=== PATIENT | female | born 1960 ===

== ENCOUNTER 2018-03-03 09:25 | Inpatient (IN) | payer OTHER ==
[2018-03-03 10:11] LABS: BASO # 0.1 K/uL (0.0-0.2); BASO % 1.1 % (0.0-2.0); EOS # 0.4 K/uL (0.0-0.7); LYMPH # 2.3 K/uL (1.0-4.3); LYMPH % 38.6 % (20.0-40.0); MEAN CELL VOLUME 82.3 fL (81.0-99.0); MEAN CORPUSCULAR HEMOGLOBIN 27.5 pg (27.0-31.0); MEAN CORPUSCULAR HGB CONC 33.4 g/dL (33.0-37.0); MEAN PLATELET VOLUME 8.1 fL (7.2-11.7); MONO # 0.4 K/uL (0.0-0.8); MONO % 7.6 % (0.0-10.0); NEUT # 2.7 K/uL (1.8-7.0); NEUT % 45.7 % (50.0-75.0); NRBC % 0.1 % (0.0-2.0); RBC 2.46 Mil/uL (3.80-5.20); WHITE BLOOD COUNT 5.9 K/uL (4.8-10.8)
[2018-03-03 10:22] LABS: ALB/GLOB RATIO 1.5 (1.0-2.1); ALBUMIN 3.5 g/dL (3.5-5.0); ALT/SGPT 54 U/L (9-52); AST/SGOT 36 U/L (14-36); BLOOD UREA NITROGEN 22 mg/dL (7-17); CALCIUM 8.4 mg/dl (8.6-10.4); GFR NON-AFRICAN AMERICAN > 60
[2018-03-03 10:23] LABS: HEMOGLOBIN 6.8 g/dL (11.0-16.0)
[2018-03-03 10:35] LABS: B-TYPE NATRIURETIC PEPTIDE 81.6 pg/mL (0-900); CK-MB 1.35 ng/mL (0.0-3.38)
--- NOTE | 2018-03-03 11:13 | C.PDOC ---
History Of Present Illness 58 y/o female presents to ED with c/o two episodes of palpitations, dizziness and weakness. Pt notes she had an episode yesterday and one this morning last about 15 min and self resolving. (+) dark stool for 2 weeks. (+) NSAID use. C ontrary to triage, pt had no syncope. Patient denies vaginal bleeding, abdominal pain, loc, chest pain, sob, headache, visual changes or any other complaints at this time. Time Seen by Provider: 03/03/18 09:32 Chief Complaint (Nursing): Syncope History Per: Patient History/Exam Limitations: no limitations Onset/Duration Of Symptoms: Days Current Symptoms Are (Timing): Still Present Past Medical History Reviewed: Historical Data, Nursing Documentation, Vital Signs Vital Signs: Last Vital Signs Temp 98.6 F 03/04/18 15:00 Pulse 83 03/04/18 15:30 Resp 19 03/04/18 15:30 BP 105/57 L 03/04/18 15:30 Pulse Ox 100 03/04/18 15:30 - Medical History PMH: Hypercholesterolemia Surgical History: No Surg Hx Family History: States: No Known Family Hx - Social History Hx Alcohol Use: No Hx Substance Use: No - Immunization History Hx Tetanus Toxoid Vaccination: No Hx Influenza Vaccination: No Hx Pneumococcal Vaccination: No Review Of Systems Except As Marked, All Systems Reviewed And Found Negative. Constitutional: Negative for: Fever, Chills Cardiovascular: Positive for: Palpitations. Negative for: Chest Pain Gastrointestinal: Negative for: Nausea, Vomiting Neurological: Positive for: Weakness, Dizziness. Negative for: Headache Physical Exam - Physical Exam Appears: Non-toxic, No Acute Distress Skin: Warm, Dry, Pale, No Rash Head: Atraumatic, Normacephalic Eye(s): bilateral: PERRL, EOMI, Conjunctiva Pale, Other (No nystagmus) Nose: Normal Oral Mucosa: Moist Neck: Normal ROM, Supple Chest: Symmetrical Cardiovascular: Rhythm Regular Respiratory: Normal Breath Sounds, No Rales, No Rhonchi, No Wheezing Gastrointestinal/Abdominal: Soft, No Tenderness, No Guarding, No Rebound Rectal: Rectal Tone, Melena Back: No CVA Tenderness Extremity: Normal ROM Neurological/Psych: Oriented x3, Normal Speech, Normal Cognition ED Course And Treatment - Laboratory Results Result Diagrams: 03/04/18 06:14 03/04/18 06:14 ECG: Interpreted By Me, Viewed By Me ECG Rhythm: Sinus Rhythm Rate From EC (BPM) O2 Sat by Pulse Oximetry: 100 (RA) Pulse Ox Interpretation: Normal Progress Note: Case discussed with Dr. Helms, agreed upon admission. Disposition - Disposition Disposition: HOSPITALIZED Disposition Time: 14:00 Condition: STABLE - Clinical Impression Clinical Impression: Symptomatic anemia, GI bleed - PA / ERGONOMICS CONSULTANT / Resident Statement MD/DO has reviewed & agrees with the documentation as recorded. - Scribe Statement The provider has reviewed the documentation as recorded by the Mimiibiain Hernandez All medical record entries made by the Johanna were at my direction and personally dictated by me. I have reviewed the chart and agree that the record accurately reflects my personal performance of the history, physical exam, medical decision making, and the department course for this patient. I have also personally directed, reviewed, and agree with the discharge instructions and disposition.
[2018-03-03 11:22] LABS: URINE BILIRUBIN NEGATIVE (NEGATIVE); URINE BLOOD NEGATIVE (NEGATIVE); URINE CLARITY Clear (Clear); URINE COLOR Straw (YELLOW); URINE GLUCOSE (UA) NORMAL (Normal); URINE LEUKOCYTE ESTERASE TRACE Leu/uL (Negative); URINE PROTEIN NEGATIVE (NEGATIVE); URINE UROBILINOGEN NORMAL mg/dL (0.2-1.0)
[2018-03-03 11:35] LABS: BARBITURATES, UR NEGATIVE (NEGATIVE); BENZODIAZEPINES, UR NEGATIVE (NEGATIVE); OPIATES, UR NEGATIVE (NEGATIVE); PHENCYCLIDINE, UR NEGATIVE (NEGATIVE)
[2018-03-03 12:39] LABS: INR 1.1; PROTHROMBIN TIME 12.3 SECONDS (9.7-12.2)
[2018-03-03 20:51] LABS: HEMOGLOBIN 8.2 g/dL (11.0-16.0)
[2018-03-04 06:38] LABS: HEMOGLOBIN 7.8 g/dL (11.0-16.0); MEAN CELL VOLUME 81.9 fL (81.0-99.0); MEAN CORPUSCULAR HEMOGLOBIN 27.7 pg (27.0-31.0); MEAN CORPUSCULAR HGB CONC 33.9 g/dL (33.0-37.0); MEAN PLATELET VOLUME 7.9 fL (7.2-11.7); RBC 2.81 Mil/uL (3.80-5.20); RED CELL DISTRIBUTION WIDTH 17.2 % (11.5-14.5); WHITE BLOOD COUNT 6.1 K/uL (4.8-10.8)
[2018-03-04 06:39] LABS: INR 1.1; PROTHROMBIN TIME 11.7 SECONDS (9.7-12.2)
[2018-03-04 07:44] LABS: BLOOD UREA NITROGEN 17 mg/dL (7-17); CALCIUM 8.4 mg/dl (8.6-10.4); GFR NON-AFRICAN AMERICAN > 60
--- NOTE | 2018-03-04 07:47 | CP.PCM.CON ---
History of Present Illness - History of Present Illness History of Present Illness: CC: Melena/anemia HPI: GI consult requested on this 58 year old woman with Hgb 6, melena. Pt transfused yesterday with PRBCs. Denies abdominal pain or prior history of PUD. Has been taking Celebrex and Cyclobenzaprine for lower back pain. PCP- Dr Saini. Denies ASA use. No BM x past 2 days. Was tachycardic on presentation. Review of Systems - Constitutional Constitutional: absent: Anorexia - Cardiovascular Cardiovascular: absent: Chest Pain - Respiratory Respiratory: Dyspnea - Gastrointestinal Gastrointestinal: Melena. absent: Abdominal Pain - Musculoskeletal Musculoskeletal: Back Pain - Integumentary Integumentary: absent: Jaundice - Neurological Neurological: Weakness - Psychiatric Psychiatric: absent: Confusion Past Patient History - Past Medical History & Family History Past Medical History?: No - Past Social History Smoking Status: Never Smoked Alcohol: None - CARDIAC Hx Hypercholesterolemia: No - PULMONARY Hx Respiratory Disorders: No - NEUROLOGICAL Hx Neurological Disorder: No - HEENT Hx HEENT Problems: No - RENAL Hx Chronic Kidney Disease: No - ENDOCRINE/METABOLIC Hx Endocrine Disorders: No - HEMATOLOGICAL/ONCOLOGICAL Hx Blood Disorders: No - INTEGUMENTARY Hx Dermatological Problems: No - MUSCULOSKELETAL/RHEUMATOLOGICAL Hx Musculoskeletal Disorders: No Hx Falls: No - GASTROINTESTINAL Other/Comment: c/o black stool - GENITOURINARY/GYNECOLOGICAL Hx Genitourinary Disorders: No - PSYCHIATRIC Hx Psychophysiologic Disorder: No Hx Substance Use: No - SURGICAL HISTORY Hx Surgeries: Yes Other/Comment: minor - ANESTHESIA Hx Anesthesia: Yes Hx Anesthesia Reactions: No Hx Malignant Hyperthermia: No Has any member of the family had a problem w/ anesthesia?: No Meds Allergies/Adverse Reactions: Allergies Allergy/AdvReac Type Severity Reaction Status Date / Time No Known Allergies Allergy Verified 03/03/18 09:47 - Medications Medications: Current Medications Pantoprazole Sodium (Protonix Inj) 40 mg IVP Q12 ANNE Last Admin: 03/03/18 22:01 Dose: 40 mg Pneumococcal Polyvalent Vaccine (Pneumovax 23 Vaccine) 0.5 ml IM .ONCE ONE Stop: 03/05/18 10:01 Physical Exam - Constitutional Appears: Well, No Acute Distress - Head Exam Head Exam: NORMOCEPHALIC - Eye Exam Eye Exam: absent: Scleral icterus - ENT Exam ENT Exam: Normal Exam - Respiratory Exam Respiratory Exam: Clear to Auscultation Bilateral - Cardiovascular Exam Cardiovascular Exam: REGULAR RHYTHM - GI/Abdominal Exam GI & Abdominal Exam: Soft. absent: Guarding, Mass, Tenderness Results - Vital Signs Recent Vital Signs: Last Vital Signs Temp 98.6 F 03/04/18 00:00 Pulse 88 03/04/18 00:00 Resp 20 03/04/18 00:00 BP 104/61 03/04/18 00:00 Pulse Ox 99 03/04/18 00:00 - Labs Result Diagrams: 03/04/18 06:14 03/04/18 06:14 Labs: Laboratory Results - last 24 hr 03/03/18 03/03/18 03/03/18 10:07 10:07 11:10 WBC 5.9 RBC 2.46 L Hgb 6.8 L Hct 20.2 L MCV 82.3 MCH 27.5 MCHC 33.4 RDW 19.0 H Plt Count 289 MPV 8.1 Neut % (Auto) 45.7 L Lymph % (Auto) 38.6 [place] % (Auto) 7.6 Eos % (Auto) 7.0 H Baso % (Auto) 1.1 Neut # (Auto) 2.7 Lymph # (Auto) 2.3 [place] # (Auto) 0.4 Eos # (Auto) 0.4 Baso # (Auto) 0.1 PT INR APTT Sodium 138 Potassium 4.2 Chloride 102 Carbon Dioxide 27 Anion Gap 13 BUN 22 H Creatinine 0.7 Est GFR ( Amer) > 60 Est GFR (Non-Af Amer) > 60 Random Glucose 115 H Calcium 8.4 L Total Bilirubin 0.5 AST 36 ALT 54 H Alkaline Phosphatase 73 Total Creatine Kinase 99 CK-MB (Mass) 1.35 Troponin I < 0.0120 NT-Pro-B Natriuret Pep 81.6 Total Protein 5.8 L Albumin 3.5 Globulin 2.3 Albumin/Globulin Ratio 1.5 TSH 3rd Generation 2.73 Urine Color Straw Urine Clarity Clear Urine pH 7.0 Ur Specific [place] 1.005 Urine Protein Negative Urine Glucose (UA) Normal Urine Ketones Negative Urine Blood Negative Urine Nitrate Negative Urine Bilirubin Negative Urine Urobilinogen Normal Ur Leukocyte Esterase Trace Urine WBC (Auto) 1 Stool Occult Blood Urine Opiates Screen Urine Methadone Screen Ur Barbiturates Screen Ur Phencyclidine Scrn Ur Amphetamines Screen U Benzodiazepines Scrn U Oth Cocaine Metabols U Cannabinoids Screen Blood Type Antibody Screen 03/03/18 03/03/18 03/03/18 11:10 12:03 12:19 WBC RBC Hgb Hct MCV MCH MCHC RDW Plt Count MPV Neut % (Auto) Lymph % (Auto) [place] % (Auto) Eos % (Auto) Baso % (Auto) Neut # (Auto) Lymph # (Auto) [place] # (Auto) Eos # (Auto) Baso # (Auto) PT INR APTT Sodium Potassium Chloride Carbon Dioxide Anion Gap BUN Creatinine Est GFR ( Amer) Est GFR (Non-Af Amer) Random Glucose Calcium Total Bilirubin AST ALT Alkaline Phosphatase Total Creatine Kinase CK-MB (Mass) Troponin I NT-Pro-B Natriuret Pep Total Protein Albumin Globulin Albumin/Globulin Ratio TSH 3rd Generation Urine Color Urine Clarity Urine pH Ur Specific [place] Urine Protein Urine Glucose (UA) Urine Ketones Urine Blood Urine Nitrate Urine Bilirubin Urine Urobilinogen Ur Leukocyte Esterase Urine WBC (Auto) Stool Occult Blood Positive H Urine Opiates Screen Negative Urine Methadone Screen Negative Ur Barbiturates Screen Negative Ur Phencyclidine Scrn Negative Ur Amphetamines Screen Negative U Benzodiazepines Scrn Negative U Oth Cocaine Metabols Negative U Cannabinoids Screen Negative Blood Type O POSITIVE Antibody Screen Negative 03/03/18 03/03/18 03/04/18 12:24 20:48 06:14 WBC 6.1 RBC 2.81 L Hgb 8.2 L 7.8 L Hct 23.6 L 23.0 L MCV 81.9 MCH 27.7 MCHC 33.9 RDW 17.2 H Plt Count 262 MPV 7.9 Neut % (Auto) Lymph % (Auto) [place] % (Auto) Eos % (Auto) Baso % (Auto) Neut # (Auto) Lymph # (Auto) [place] # (Auto) Eos # (Auto) Baso # (Auto) PT 12.3 H INR 1.1 APTT 26 Sodium Potassium Chloride Carbon Dioxide Anion Gap BUN Creatinine Est GFR ( Amer) Est GFR (Non-Af Amer) Random Glucose Calcium Total Bilirubin AST ALT Alkaline Phosphatase Total Creatine Kinase CK-MB (Mass) Troponin I NT-Pro-B Natriuret Pep Total Protein Albumin Globulin Albumin/Globulin Ratio TSH 3rd Generation Urine Color Urine Clarity Urine pH Ur Specific [place] Urine Protein Urine Glucose (UA) Urine Ketones Urine Blood Urine Nitrate Urine Bilirubin Urine Urobilinogen Ur Leukocyte Esterase Urine WBC (Auto) Stool Occult Blood Urine Opiates Screen Urine Methadone Screen Ur Barbiturates Screen Ur Phencyclidine Scrn Ur Amphetamines Screen U Benzodiazepines Scrn U Oth Cocaine Metabols U Cannabinoids Screen Blood Type Antibody Screen 03/04/18 03/04/18 06:14 06:14 WBC RBC Hgb Hct MCV MCH MCHC RDW Plt Count MPV Neut % (Auto) Lymph % (Auto) [place] % (Auto) Eos % (Auto) Baso % (Auto) Neut # (Auto) Lymph # (Auto) [place] # (Auto) Eos # (Auto) Baso # (Auto) PT 11.7 INR 1.1 APTT Sodium 140 Potassium 4.2 Chloride 106 Carbon Dioxide 27 Anion Gap 12 BUN 17 Creatinine 0.8 Est GFR ( Amer) > 60 Est GFR (Non-Af Amer) > 60 Random Glucose 103 Calcium 8.4 L Total Bilirubin AST ALT Alkaline Phosphatase Total Creatine Kinase CK-MB (Mass) Troponin I NT-Pro-B Natriuret Pep Total Protein Albumin Globulin Albumin/Globulin Ratio TSH 3rd Generation Urine Color Urine Clarity Urine pH Ur Specific [place] Urine Protein Urine Glucose (UA) Urine Ketones Urine Blood Urine Nitrate Urine Bilirubin Urine Urobilinogen Ur Leukocyte Esterase Urine WBC (Auto) Stool Occult Blood Urine Opiates Screen Urine Methadone Screen Ur Barbiturates Screen Ur Phencyclidine Scrn Ur Amphetamines Screen U Benzodiazepines Scrn U Oth Cocaine Metabols U Cannabinoids Screen Blood Type Antibody Screen Assessment & Plan (1) Anemia due to blood loss Assessment and Plan: Anemia, melena, BROWN-2 inhibitor use. Suspect UpperGI ttract as source of acute blood loss. Clinically stable at present Will plan on EGD today. PPI. NPO Discussed with patient and her spouse, and RN Status: Acute
--- NOTE | 2018-03-04 11:57 | CARD ---
APPROVED REPORT Date of service: 03/03/2018 EKG Measurement Heart [id number] <Conclusion> Normal sinus rhythm Normal ECG
[2018-03-04] MEDS ORDERED: Propofol 10 mg/ml Inj (20 ML) ONE ×2 (14:18→14:51)
[2018-03-04] MEDS ORDERED: Lidocaine Hydrochloride 5 ML INJ ONE (14:20)
[2018-03-04] MEDS ORDERED: Lactated Ringer's 1,000 ML IV ONE (14:35)
--- NOTE | 2018-03-04 15:07 | CP.PCM.PN ---
Subjective - Date & Time of Evaluation Date of Evaluation: 03/04/18 Time of Evaluation: 15:06 - Subjective Subjective: EGD: Large benign appearing gastric mass with ulcer on surface, treated with Gold probe and epinephrine with good hemostasis Rec: PPI, monitor Hgb, await pathology. Will need elective surgical resection Objective - Vital Signs/Intake and Output Vital Signs (last 24 hours): Temp Pulse Resp BP Pulse Ox 98.5 F 82 20 105/69 99 03/04/18 07:54 03/04/18 07:54 03/04/18 07:54 03/04/18 07:54 03/04/18 07:54 - Medications Medications: Current Medications Pantoprazole Sodium (Protonix Inj) 40 mg IVP Q12 ANNE Last Admin: 03/04/18 10:17 Dose: 40 mg Pneumococcal Polyvalent Vaccine (Pneumovax 23 Vaccine) 0.5 ml IM .ONCE ONE Stop: 03/05/18 10:01 - Labs Labs: 03/04/18 06:14 03/04/18 06:14 PT 11.7 SECONDS (9.7-12.2) 03/04/18 06:14 INR 1.1 03/04/18 06:14 APTT 26 SECONDS (21-34) 03/03/18 12:24 Assessment and Plan (1) Anemia due to blood loss Status: Acute
--- NOTE | 2018-03-04 17:12 | CP.PCM.HP ---
Present on Admission - Present on Admission Any Indicators Present on Admission: No Past Patient History - Past Medical History & Family History Past Medical History?: No - Past Social History Smoking Status: Never Smoked Alcohol: None - CARDIAC Hx Hypercholesterolemia: No - PULMONARY Hx Respiratory Disorders: No - NEUROLOGICAL Hx Neurological Disorder: No - HEENT Hx HEENT Problems: No - RENAL Hx Chronic Kidney Disease: No - ENDOCRINE/METABOLIC Hx Endocrine Disorders: No - HEMATOLOGICAL/ONCOLOGICAL Hx Blood Disorders: No - INTEGUMENTARY Hx Dermatological Problems: No - MUSCULOSKELETAL/RHEUMATOLOGICAL Hx Musculoskeletal Disorders: No Hx Falls: No - GASTROINTESTINAL Other/Comment: c/o black stool - GENITOURINARY/GYNECOLOGICAL Hx Genitourinary Disorders: No - PSYCHIATRIC Hx Psychophysiologic Disorder: No Hx Substance Use: No - SURGICAL HISTORY Hx Surgeries: Yes Other/Comment: minor - ANESTHESIA Hx Anesthesia: Yes Hx Anesthesia Reactions: No Hx Malignant Hyperthermia: No Has any member of the family had a problem w/ anesthesia?: No Meds Allergies/Adverse Reactions: Allergies Allergy/AdvReac Type Severity Reaction Status Date / Time No Known Allergies Allergy Verified 03/03/18 09:47 Results - Vital Signs Recent Vital Signs: Last Vital Signs Temp 98.6 F 03/04/18 15:00 Pulse 83 03/04/18 15:30 Resp 19 03/04/18 15:30 BP 105/57 L 03/04/18 15:30 Pulse Ox 100 03/04/18 15:30 - Labs Result Diagrams: 03/10/18 06:27 03/09/18 07:43 Labs: Laboratory Results - last 24 hr 03/03/18 03/03/18 03/04/18 12:19 20:48 06:14 WBC 6.1 RBC 2.81 L Hgb 8.2 L 7.8 L Hct 23.6 L 23.0 L MCV 81.9 MCH 27.7 MCHC 33.9 RDW 17.2 H Plt Count 262 MPV 7.9 PT INR Sodium Potassium Chloride Carbon Dioxide Anion Gap BUN Creatinine Est GFR ( Amer) Est GFR (Non-Af Amer) Random Glucose Calcium Blood Type O POSITIVE Antibody Screen Negative 03/04/18 03/04/18 06:14 06:14 WBC RBC Hgb Hct MCV MCH MCHC RDW Plt Count MPV PT 11.7 INR 1.1 Sodium 140 Potassium 4.2 Chloride 106 Carbon Dioxide 27 Anion Gap 12 BUN 17 Creatinine 0.8 Est GFR ( Amer) > 60 Est GFR (Non-Af Amer) > 60 Random Glucose 103 Calcium 8.4 L Blood Type Antibody Screen
--- NOTE | 2018-03-05 04:08 | HP ---
CHIEF COMPLAINT: Weakness, yellow pale discoloration. HISTORY OF PRESENT ILLNESS: This is a 58 years old female with significant past medical history. She came because she had two episodes of palpitation, weakness, dizziness lasting 15 minutes on the day prior to the day of admission along with generalized weakness and tiredness, anorexia, malaise and fatigue. She denied any abdominal pain, nausea, vomiting. She has some dark colored stool. She denies any vaginal bleeding. She denies any history of taking any pain killers over the counter. She has generalized weakness and tiredness. She denies abdominal pain. No fevers. No chills. PAST MEDICAL HISTORY: Nothing significant. SOCIAL HISTORY: Nonsmoker, non-ETOH user. CURRENT MEDICATIONS: None. ALLERGIES: UNKNOWN ALLERGIES. PHYSICAL EXAMINATION: GENERAL: A middle aged female in no distress, weak. VITAL SIGNS: BP 105/57, pulse 83, respiratory rate 20, temperature 98.6. SKIN: No rash. Pale. No purpura, no petechiae. HEENT: Atraumatic and normocephalic. Positive pallor. Negative jaundice. Extraocular movements are intact. NECK: Supple. No JVD. No lymph nodes. No thyromegaly. No carotid bruits. CHEST: Chest wall bilateral symmetrical expansion. LUNGS: Clear. No rales. No rhonchi. ABDOMEN: Soft and nontender. Bowel sounds are positive. RECTAL: Positive for occult blood. EXTREMITIES: No clubbing, cyanosis or edema. PELVIC: Negative. LEAF CONDITIONER: Normal. IMPRESSION: 1. Anemia, gastrointestinal bleed, rule out peptic ulcer disease versus gastritis. 2. Dehydration. PLAN: Admit. Detailed orders written. Seen and examined. Amandeep Helms MD
[2018-03-05 06:51] LABS: HEMOGLOBIN 7.6 g/dL (11.0-16.0); MEAN CELL VOLUME 81.5 fL (81.0-99.0); MEAN CORPUSCULAR HEMOGLOBIN 27.6 pg (27.0-31.0); MEAN CORPUSCULAR HGB CONC 33.8 g/dL (33.0-37.0); MEAN PLATELET VOLUME 7.6 fL (7.2-11.7); RBC 2.75 Mil/uL (3.80-5.20); RED CELL DISTRIBUTION WIDTH 17.1 % (11.5-14.5); WHITE BLOOD COUNT 5.1 K/uL (4.8-10.8)
[2018-03-05] MEDS ORDERED: Pneumococcal 23-Valent Vaccine IM ONE (10:00)
--- NOTE | 2018-03-05 13:29 | CP.PCM.CON ---
History of Present Illness - History of Present Illness History of Present Illness: General surgery consult note for Dr. Mercer-Maggie Powell, PGY-2 Pt S & E at bedside with Dr Mercer at 1315 58F w/no sig PMH consulted for gastric mass. Pt reports melena x >1 week, constipation. Denies ab pain, F & C, diarrha, N & V, SOB, CP, back pain, changes in urinary habits, other complaints. Pt evaluated by GI with findings of gastric mass in gastric body on EGD. PMH: Denies PSH: lipoma excision over left arm x 3 All: NKDA SH: Denies ETOH, tobacco or illicit drug use Review of Systems - Review of Systems All systems: reviewed and no additional remarkable complaints except - Constitutional Constitutional: absent: Chills, Fever, Headache - EENT Ears: absent: Dizziness Nose/Mouth/Throat: absent: Sore Throat - Cardiovascular Cardiovascular: absent: Chest Pain - Gastrointestinal Gastrointestinal: Constipation, Melena. absent: Abdominal Pain, Diarrhea, Nausea, Vomiting - Musculoskeletal Musculoskeletal: absent: Back Pain - Integumentary Integumentary: absent: Rash Past Patient History - Past Medical History & Family History Past Medical History?: No - Past Social History Smoking Status: Never Smoked Alcohol: None - CARDIAC Hx Hypercholesterolemia: Yes - PULMONARY Hx Respiratory Disorders: No - NEUROLOGICAL Hx Neurological Disorder: No - HEENT Hx HEENT Problems: No - RENAL Hx Chronic Kidney Disease: No - ENDOCRINE/METABOLIC Hx Endocrine Disorders: No - HEMATOLOGICAL/ONCOLOGICAL Hx Blood Disorders: No - INTEGUMENTARY Hx Dermatological Problems: No - MUSCULOSKELETAL/RHEUMATOLOGICAL Hx Musculoskeletal Disorders: No Hx Falls: No - GASTROINTESTINAL Other/Comment: c/o black stool - GENITOURINARY/GYNECOLOGICAL Hx Genitourinary Disorders: No - PSYCHIATRIC Hx Substance Use: No - SURGICAL HISTORY Hx Surgeries: Yes Other/Comment: minor - ANESTHESIA Hx Anesthesia: Yes Hx Anesthesia Reactions: No Hx Malignant Hyperthermia: No Has any member of the family had a problem w/ anesthesia?: No Meds Allergies/Adverse Reactions: Allergies Allergy/AdvReac Type Severity Reaction Status Date / Time No Known Allergies Allergy Verified 03/03/18 09:47 - Medications Medications: Current Medications Pantoprazole Sodium (Protonix Inj) 40 mg IVP Q12 ANNE Last Admin: 03/05/18 10:09 Dose: 40 mg Physical Exam - Constitutional Appears: Non-toxic, No Acute Distress - Head Exam Head Exam: ATRAUMATIC, NORMAL INSPECTION, NORMOCEPHALIC - Eye Exam Eye Exam: EOMI, Normal appearance - ENT Exam ENT Exam: Mucous Membranes Moist, Normal Exam - Neck Exam Neck exam: Positive for: Full Rom, Normal Inspection - Respiratory Exam Respiratory Exam: Clear to Auscultation Bilateral, NORMAL BREATHING PATTERN - Cardiovascular Exam Cardiovascular Exam: REGULAR RHYTHM, +S1, +S2 - GI/Abdominal Exam GI & Abdominal Exam: Normal Bowel Sounds, Soft. absent: Distended, Firm, Guarding, Tenderness - Extremities Exam Extremities exam: Positive for: normal inspection. Negative for: pedal edema - Back Exam Back exam: NORMAL INSPECTION - Neurological Exam Neurological exam: Alert, Oriented x3 - Psychiatric Exam Psychiatric exam: Normal Affect, Normal Mood - Skin Skin Exam: Dry, Intact, Normal Color, Warm Results - Vital Signs Recent Vital Signs: Last Vital Signs Temp 98 F 03/05/18 08:02 Pulse 94 H 03/05/18 08:02 Resp 20 03/05/18 08:02 BP 92/60 L 03/05/18 08:02 Pulse Ox 98 03/05/18 08:02 - Labs Result Diagrams: 03/05/18 06:35 03/04/18 06:14 Labs: Laboratory Results - last 24 hr 03/03/18 03/05/18 12:19 06:35 WBC 5.1 RBC 2.75 L Hgb 7.6 L Hct 22.4 L MCV 81.5 MCH 27.6 MCHC 33.8 RDW 17.1 H Plt Count 251 MPV 7.6 Blood Type O POSITIVE Antibody Screen Negative Assessment & Plan - Assessment and Plan (Free Text) Assessment: 58F w/gastric mass Plan: Possible OR tomorrow CXR FU AM labs NPO pMN Transfuse pRBCs PRN DW Dr. Sylvie Powell, PGY-2 - Date & Time Date: 03/05/18 Time: 13:40
--- NOTE | 2018-03-05 15:19 | CP.PCM.PN ---
Subjective - Date & Time of Evaluation Date of Evaluation: 03/05/18 Time of Evaluation: 15:16 - Subjective Subjective: f/u GI bleed Melena but stable Hgb Seen by surgery and discussed with surgeon. Frozen section will be obtained in OR, lesion is likely palpable. c/o constipation Gastric pathology is benign Objective - Vital Signs/Intake and Output Vital Signs (last 24 hours): Temp Pulse Resp BP Pulse Ox 98.2 F 97 H 20 123/72 98 03/05/18 14:48 03/05/18 14:48 03/05/18 14:48 03/05/18 14:48 03/05/18 08:02 Intake and Output: 03/05/18 03/05/18 06:59 18:59 Intake Total 0 Balance 0 - Medications Medications: Current Medications Pantoprazole Sodium (Protonix Inj) 40 mg IVP Q12 ANNE Last Admin: 03/05/18 10:09 Dose: 40 mg - Labs Labs: 03/05/18 06:35 03/04/18 06:14 PT 11.7 SECONDS (9.7-12.2) 03/04/18 06:14 INR 1.1 03/04/18 06:14 APTT 26 SECONDS (21-34) 03/03/18 12:24 - Constitutional Appears: Well - Head Exam Head Exam: NORMOCEPHALIC - Respiratory Exam Respiratory Exam: NORMAL BREATHING PATTERN - Cardiovascular Exam Cardiovascular Exam: REGULAR RHYTHM - GI/Abdominal Exam GI & Abdominal Exam: Soft. absent: Tenderness Assessment and Plan (1) Anemia due to blood loss Assessment & Plan: Benign appearing large gastric tumor with surface ulcer that bled. Treated endoscopically with good hemostasis Surgical resection is indicated Status: Acute
--- NOTE | 2018-03-05 15:50 | RAD ---
Date of service: 03/05/2018 HISTORY: pre op COMPARISON: None. FINDINGS: LUNGS: No active pulmonary disease. PLEURA: No significant pleural effusion identified, no pneumothorax apparent. CARDIOVASCULAR: Normal. OSSEOUS STRUCTURES: No significant abnormalities. VISUALIZED UPPER ABDOMEN: Normal. OTHER FINDINGS: None. IMPRESSION: No active disease.
[2018-03-05] MEDS ORDERED: Iodixanol 320 MG/ML 100 ML BOTTLE IV ONE (17:25)
--- NOTE | 2018-03-05 18:03 | CT ---
Date of service: 03/05/2018 PROCEDURE: CT Abdomen and Pelvis with contrast HISTORY: pre op eval COMPARISON: None. TECHNIQUE: Contrast dose: 100 mL Visipaque 320 Radiation dose: Total exam DLP = 280.9 mGy-cm. This CT exam was performed using one or more of the following dose reduction techniques: Automated exposure control, adjustment of the mA and/or kV according to patient size, and/or use of iterative reconstruction technique. FINDINGS: LOWER THORAX: Unremarkable. LIVER: Unremarkable. No gross lesion or ductal dilatation. GALLBLADDER AND BILE DUCTS: Unremarkable. PANCREAS: Unremarkable. No gross lesion or ductal dilatation. SPLEEN: 1.2 cm nonspecific splenic hypodensity. ADRENALS: Unremarkable. No mass. KIDNEYS AND URETERS: Unremarkable. No hydronephrosis. No solid mass. VASCULATURE: Unremarkable. No aortic aneurysm. BOWEL: Large 5.5 x 4.3 cm gastric mass that does not appear to extend beyond the gastric wall. No obstruction. No gross mural thickening. APPENDIX: Normal appendix. PERITONEUM: Unremarkable. No free fluid. No free air. LYMPH NODES: Unremarkable. No enlarged lymph nodes. BLADDER: Unremarkable. REPRODUCTIVE: Unremarkable. BONES: No acute fracture. OTHER FINDINGS: None. IMPRESSION: Large heterogeneously enhancing 5.5 x 4.3 cm gastric mass that does not appear to extend beyond the gastric wall and is not indicated adjacent structures. No obvious lymph nodes or evidence of metastatic disease.
--- NOTE | 2018-03-05 23:55 | CP.PCM.PN ---
Objective - Vital Signs/Intake and Output Vital Signs (last 24 hours): Temp Pulse Resp BP Pulse Ox 98.2 F 85 18 102/65 99 03/05/18 16:41 03/05/18 16:41 03/05/18 16:41 03/05/18 16:41 03/05/18 16:00 Intake and Output: 03/05/18 03/06/18 18:59 06:59 Intake Total 1150 Balance 1150 - Medications Medications: Current Medications Pantoprazole Sodium (Protonix Inj) 40 mg IVP Q12 ANNE Last Admin: 03/05/18 21:56 Dose: 40 mg - Labs Labs: 03/05/18 06:35 03/04/18 06:14 PT 11.7 SECONDS (9.7-12.2) 03/04/18 06:14 INR 1.1 03/04/18 06:14 APTT 26 SECONDS (21-34) 03/03/18 12:24
[2018-03-06 07:27] LABS: BASO # 0.1 K/uL (0.0-0.2); BASO % 0.8 % (0.0-2.0); EOS # 0.3 K/uL (0.0-0.7); EOS % 4.9 % (0.0-4.0); LYMPH % 28.7 % (20.0-40.0); MEAN CELL VOLUME 80.6 fL (81.0-99.0); MEAN CORPUSCULAR HEMOGLOBIN 27.7 pg (27.0-31.0); MEAN CORPUSCULAR HGB CONC 34.4 g/dL (33.0-37.0); MONO # 0.7 K/uL (0.0-0.8); MONO % 9.9 % (0.0-10.0); NEUT # 3.8 K/uL (1.8-7.0); NEUT % 55.7 % (50.0-75.0); RBC 3.72 Mil/uL (3.80-5.20); RED CELL DISTRIBUTION WIDTH 17.4 % (11.5-14.5); WHITE BLOOD COUNT 6.9 K/uL (4.8-10.8)
[2018-03-06 07:35] LABS: HEMOGLOBIN 10.3 g/dL (11.0-16.0)
[2018-03-06 07:38] LABS: PROTHROMBIN TIME 11.4 SECONDS (9.7-12.2)
[2018-03-06 07:45] LABS: ALB/GLOB RATIO 1.5 (1.0-2.1); ALBUMIN 3.9 g/dL (3.5-5.0); ALT/SGPT 55 U/L (9-52); AST/SGOT 42 U/L (14-36); BLOOD UREA NITROGEN 10 mg/dL (7-17); CALCIUM 8.9 mg/dl (8.6-10.4); GFR NON-AFRICAN AMERICAN > 60
[2018-03-06] MEDS ORDERED: metroNIDAZOLE IV 500 mg/100 ml 500 MG/100 ML BAG ONE (11:51)
[2018-03-06] MEDS ORDERED: ceFAZolin IV 1 gm in Dextrose 1 GM/50 ML BAG IVPB ONE (11:51)
[2018-03-06] MEDS ORDERED: Propofol 10 mg/ml Inj (20 ML) ONE (11:54)
[2018-03-06] MEDS ORDERED: BUPIVACAINE 0.125%/0.9% NACL 600 ML IJ ONE (12:30)
[2018-03-06] MEDS ORDERED: Morphine 4 MG/ML VIAL ONE (12:38)
[2018-03-06] MEDS ORDERED: Labetalol 5mg/ml (4ml) ONE (12:45)
[2018-03-06] MEDS ORDERED: Rocuronium 10 mg/ml (10 ml) ONE (13:15)
[2018-03-06] MEDS ORDERED: Bupivacaine 0.25% 20 ML INJ IJ ONE (14:01)
[2018-03-06] MEDS ORDERED: HYDROmorphone 0.5 mg/0.5 ml ISec IVP PRN (15:35)
[2018-03-06] MEDS ORDERED: Morphine Monoject Barrel PCA 1mg/ml IV PRN (15:36)
--- NOTE | 2018-03-06 15:43 | CP.PCM.CON ---
<Jefe Roberson - Last Filed: 03/06/18 17:28> Meds Allergies/Adverse Reactions: Allergies Allergy/AdvReac Type Severity Reaction Status Date / Time No Known Allergies Allergy Verified 03/03/18 09:47 - Medications Medications: Current Medications Hydromorphone HCl (Dilaudid) 0.5 mg IVP Q5M PRN PRN Reason: Pain, moderate (4-7) Stop: 03/06/18 17:35 Hydromorphone/Sodium Chloride (Dilaudid Gps Navigation Installer) 4 mg IV Q4H PRN; Protocol PRN Reason: Pain, moderate (4-7) BUPIVACAINE 0.125%/0.9% NACL (Bupivacaine-Ns 0.125% On-Q Wrapper Operator) 600 mls @ 4 mls/hr IJ ONCE ONE Stop: 03/12/18 18:29 Dextrose/Sodium Chloride (Dextrose 5%/0.9% Ns 1000 Ml) 1,000 mls @ 100 mls/hr IV CONT PRN PRN Reason: Hydration Ondansetron HCl (Zofran Inj) 4 mg IVP ONCE PRN PRN Reason: Nausea/Vomiting Stop: 03/06/18 17:36 Pantoprazole Sodium (Protonix Inj) 40 mg IVP Q12 ANNE Last Admin: 03/06/18 10:00 Dose: 40 mg Results - Vital Signs Recent Vital Signs: Last Vital Signs Temp 97.3 F L 03/06/18 15:22 Pulse 80 03/06/18 16:15 Resp 10 L 03/06/18 16:15 BP 131/78 03/06/18 16:15 Pulse Ox 100 03/06/18 16:15 - Labs Result Diagrams: 03/06/18 06:51 03/06/18 06:51 Labs: Laboratory Results - last 24 hr 03/06/18 03/06/18 03/06/18 00:42 06:51 06:51 WBC 6.9 RBC 3.72 L Hgb 10.3 L D Hct 30.0 L MCV 80.6 L MCH 27.7 MCHC 34.4 RDW 17.4 H Plt Count 336 MPV 8.0 Neut % (Auto) 55.7 Lymph % (Auto) 28.7 [place] % (Auto) 9.9 Eos % (Auto) 4.9 H Baso % (Auto) 0.8 Neut # (Auto) 3.8 Lymph # (Auto) 2.0 [place] # (Auto) 0.7 Eos # (Auto) 0.3 Baso # (Auto) 0.1 PT 11.4 INR 1.0 APTT 27 Sodium Potassium Chloride Carbon Dioxide Anion Gap BUN Creatinine Est GFR ( Amer) Est GFR (Non-Af Amer) Random Glucose Calcium Phosphorus Magnesium Total Bilirubin AST ALT Alkaline Phosphatase Total Protein Albumin Globulin Albumin/Globulin Ratio Urine HCG, Qual Negative Blood Type Antibody Screen 03/06/18 03/06/18 06:51 06:51 WBC RBC Hgb Hct MCV MCH MCHC RDW Plt Count MPV Neut % (Auto) Lymph % (Auto) [place] % (Auto) Eos % (Auto) Baso % (Auto) Neut # (Auto) Lymph # (Auto) [place] # (Auto) Eos # (Auto) Baso # (Auto) PT INR APTT Sodium 142 Potassium 3.9 Chloride 103 Carbon Dioxide 27 Anion Gap 15 BUN 10 Creatinine 0.7 Est GFR ( Amer) > 60 Est GFR (Non-Af Amer) > 60 Random Glucose 113 H Calcium 8.9 Phosphorus 4.3 Magnesium 2.1 Total Bilirubin 1.3 AST 42 H ALT 55 H Alkaline Phosphatase 76 Total Protein 6.6 Albumin 3.9 Globulin 2.7 Albumin/Globulin Ratio 1.5 Urine HCG, Qual Blood Type O POSITIVE Antibody Screen Negative Attending/Attestation - Attestation I have personally seen and examined this patient.: Yes I have fully participated in the care of the patient.: Yes I have reviewed all pertinent clinical information: Yes Notes (Text): 03/06/18 17:20 I have seen and examined the patient. Medical records, lab studies, and imaging were reviewed by me and a management plan was formulated on multidisciplinary rounds with resident Dr. Herrera. I agree with their documented assessment and plan. Patient is clinically stable post-operative gastrectomy bilroth 2, will monitor for post-op complications. Critical Care Time 35 minutes. Multi-disciplinary rounds were performed with house staff, nursing, speech therapy, respiratory therapy, pharmacy and nutrition with integrated input from the primary team/attending and other consulting services. The documented time i s cumulative and includes review of patient data/exams/labs/chart review and examination of the patient on rounds and throughout the day; time is exclusive of any procedures or teaching time. 03/06/18 17:28 <Javier Holley L - Last Filed: 03/06/18 18:35> History of Present Illness - History of Present Illness History of Present Illness: Patient is a 58 year old female with past medical history hypercholesterolemia admitted for GI bleed, found to have gastric mass on EGD now s/p partial gastrectomy. Her pain is well managed and she offers no complaints at this time. Denies fevers, chills, headache, dizziness, chest pain, shortness of breath. PMH: hypercholesterolemia PSH: lipoma excision Social: denies alcohol, tobacco, illicit drug use FHx: denies Allergies: NKDA Review of Systems - Review of Systems All systems: reviewed and no additional remarkable complaints except (as stated in HPI) Past Patient History - Past Medical History & Family History Past Medical History?: No - Past Social History Smoking Status: Never Smoked Alcohol: None - CARDIAC Hx Hypercholesterolemia: Yes - PULMONARY Hx Respiratory Disorders: No - NEUROLOGICAL Hx Neurological Disorder: No - HEENT Hx HEENT Problems: No - RENAL Hx Chronic Kidney Disease: No - ENDOCRINE/METABOLIC Hx Endocrine Disorders: No - HEMATOLOGICAL/ONCOLOGICAL Hx Blood Disorders: No - INTEGUMENTARY Hx Dermatological Problems: No - MUSCULOSKELETAL/RHEUMATOLOGICAL Hx Musculoskeletal Disorders: No Hx Falls: No - GASTROINTESTINAL Other/Comment: c/o black stool - GENITOURINARY/GYNECOLOGICAL Hx Genitourinary Disorders: No - PSYCHIATRIC Hx Substance Use: No - SURGICAL HISTORY Hx Surgeries: Yes Other/Comment: minor - ANESTHESIA Hx Anesthesia: Yes Hx Anesthesia Reactions: No Hx Malignant Hyperthermia: No Has any member of the family had a problem w/ anesthesia?: No Meds - Medications Medications: Current Medications Hydromorphone HCl (Dilaudid) 0.5 mg IVP Q5M PRN PRN Reason: Pain, moderate (4-7) Stop: 03/06/18 17:35 BUPIVACAINE 0.125%/0.9% NACL (Bupivacaine-Ns 0.125% On-Q Wrapper Operator) 600 mls @ 4 mls/hr IJ ONCE ONE Stop: 03/12/18 18:29 Ondansetron HCl (Zofran Inj) 4 mg IVP ONCE PRN PRN Reason: Nausea/Vomiting Stop: 03/06/18 17:36 Pantoprazole Sodium (Protonix Inj) 40 mg IVP Q12 ANNE Last Admin: 03/06/18 10:00 Dose: 40 mg Physical Exam - Constitutional Appears: Non-toxic, No Acute Distress - Head Exam Head Exam: ATRAUMATIC, NORMOCEPHALIC - Eye Exam Eye Exam: EOMI, Normal appearance Pupil Exam: NORMAL ACCOMODATION, PERRL - ENT Exam ENT Exam: Normal Oropharynx - Neck Exam Neck exam: Positive for: Normal Inspection. Negative for: Lymphadenopathy, Tenderness - Respiratory Exam Respiratory Exam: Clear to Auscultation Bilateral, NORMAL BREATHING PATTERN. absent: Rales, Rhonchi, Wheezes - Cardiovascular Exam Cardiovascular Exam: REGULAR RHYTHM, +S1, +S2 - GI/Abdominal Exam GI & Abdominal Exam: Normal Bowel Sounds, Soft. absent: Distended, Guarding, Rebound, Tenderness Additional comments: Abdominal wound dressings clean dry and intact with alvino drain containing serosanguinous fluid - Extremities Exam Extremities exam: Positive for: normal capillary refill, normal inspection, pedal pulses present. Negative for: calf tenderness, pedal edema - Neurological Exam Neurological exam: Alert, CN II-XII Intact, Oriented x3 - Skin Skin Exam: Dry, Intact, Warm Results - Vital Signs Recent Vital Signs: Last Vital Signs Temp 97.8 F 03/06/18 07:36 Pulse 87 03/06/18 07:36 Resp 20 03/06/18 07:36 BP 138/75 03/06/18 07:36 Pulse Ox 100 03/06/18 07:36 - Labs Result Diagrams: 03/06/18 06:51 03/06/18 06:51 Labs: Laboratory Results - last 24 hr 03/06/18 03/06/18 03/06/18 00:42 06:51 06:51 WBC 6.9 RBC 3.72 L Hgb 10.3 L D Hct 30.0 L MCV 80.6 L MCH 27.7 MCHC 34.4 RDW 17.4 H Plt Count 336 MPV 8.0 Neut % (Auto) 55.7 Lymph % (Auto) 28.7 [place] % (Auto) 9.9 Eos % (Auto) 4.9 H Baso % (Auto) 0.8 Neut # (Auto) 3.8 Lymph # (Auto) 2.0 [place] # (Auto) 0.7 Eos # (Auto) 0.3 Baso # (Auto) 0.1 PT 11.4 INR 1.0 APTT 27 Sodium Potassium Chloride Carbon Dioxide Anion Gap BUN Creatinine Est GFR ( Amer) Est GFR (Non-Af Amer) Random Glucose Calcium Phosphorus Magnesium Total Bilirubin AST ALT Alkaline Phosphatase Total Protein Albumin Globulin Albumin/Globulin Ratio Urine HCG, Qual Negative Blood Type Antibody Screen 03/06/18 03/06/18 06:51 06:51 WBC RBC Hgb Hct MCV MCH MCHC RDW Plt Count MPV Neut % (Auto) Lymph % (Auto) [place] % (Auto) Eos % (Auto) Baso % (Auto) Neut # (Auto) Lymph # (Auto) [place] # (Auto) Eos # (Auto) Baso # (Auto) PT INR APTT Sodium 142 Potassium 3.9 Chloride 103 Carbon Dioxide 27 Anion Gap 15 BUN 10 Creatinine 0.7 Est GFR ( Amer) > 60 Est GFR (Non-Af Amer) > 60 Random Glucose 113 H Calcium 8.9 Phosphorus 4.3 Magnesium 2.1 Total Bilirubin 1.3 AST 42 H ALT 55 H Alkaline Phosphatase 76 Total Protein 6.6 Albumin 3.9 Globulin 2.7 Albumin/Globulin Ratio 1.5 Urine HCG, Qual Blood Type O POSITIVE Antibody Screen Negative Assessment & Plan - Assessment and Plan (Free Text) Plan: Patient is a 58 year old female with past medical history hypercholesterolemia admitted for GI bleed, found to have gastric mass on EGD now s/p partial gastrectomy Neuro: - AAO x3 - Dilaudid for pain control Pulm: - nasal cannula as tolerated - maintain SPO2 > 92 % CV: - currently hemodynamically stable - maintain MAP>65 GI: - s/p partial gastrectomy - Protonix 40 mg PO daily Renal: - monitor I and O - replete electrolytes as needed ID: - afebrile, no leukocytosis - cefazolin 1 gm IV q8H for 3 doses - metronidazole 500 mg IV q8H for 3 doses Heme/Onc - monitor H/H - 1 unit PRBCs given Endo: - maintain euglycemia PPX: Protonix 40 mg IV q12h, SCDs Case and plan was reviewed and discussed with Dr. Karol Holley PGY-1 - Date & Time Date: 03/06/18 Time: 17:28
--- NOTE | 2018-03-06 16:09 | PCM.SURG1 ---
Surgeon's Initial Post Op Note - Surgeon's Notes Surgeon: Dr Mercer Willow Machine Tender: Dr Martinez PGY4, Dr Powell PGY2, Pre-Operative Diagnosis: bleeding gastric mass Operative Findings: large palpable gastric mass Post-Operative Diagnosis: gastric mass Operation Performed: distal gastrectomy w/ Bill Holder II and functional Verito-En-Y reconstruction Specimen/Specimens Removed: gastric mass Estimated Blood Loss: EBL {In ML}: 150 Blood Products Given: N/A Drains Used: Paul Post-Op Condition: Fair Date of Surgery/Procedure: 03/06/18 Time of Surgery/Procedure: 16:09
[2018-03-06] MEDS: Dextrose 5%/0.9% NS 1,000 ML IV PRN ×2 (17:00→17:30)
[2018-03-06] MEDS: ceFAZolin IV 1 gm in Dextrose 1 GM/50 ML BAG IVPB SCH (18:58)
[2018-03-06] MEDS: metroNIDAZOLE IV 500 mg/100 ml 500 MG/100 ML BAG IVPB SCH (18:59)
--- NOTE | 2018-03-06 22:00 | CP.PCM.PN ---
Objective - Vital Signs/Intake and Output Vital Signs (last 24 hours): Temp Pulse Resp BP Pulse Ox 97.0 F L 67 8 L 122/68 100 03/06/18 18:00 03/06/18 18:20 03/06/18 18:20 03/06/18 18:00 03/06/18 18:20 Intake and Output: 03/06/18 03/07/18 18:59 06:59 Intake Total 3000 300 Output Total 1510 0 Balance 1490 300 - Medications Medications: Current Medications Hydromorphone/Sodium Chloride (Dilaudid Container Shop Welder) 6 mg IV Q4H PRN; Protocol PRN Reason: Pain, Mild (1-3) Last Admin: 03/06/18 17:59 Dose: 6 mg Dextrose/Sodium Chloride (Dextrose 5%/0.9% Ns 1000 Ml) 1,000 mls @ 100 mls/hr IV CONT PRN PRN Reason: Hydration Last Admin: 03/06/18 17:30 Dose: 100 mls/hr Cefazolin Sodium/Dextrose (Ancef Iv 1 Gm Duplex) 1 gm in 50 mls @ 100 mls/hr IVPB Q8H ANNE; Protocol Stop: 03/07/18 11:29 Last Admin: 03/06/18 18:58 Dose: 100 mls/hr Metronidazole (Flagyl) 500 mg in 100 mls @ 100 mls/hr IVPB Q8H ANNE; Protocol Stop: 03/07/18 11:59 Last Admin: 03/06/18 18:59 Dose: 100 mls/hr Pantoprazole Sodium (Protonix Inj) 40 mg IVP Q12 ANNE Last Admin: 03/06/18 10:00 Dose: 40 mg - Labs Labs: 03/06/18 06:51 03/06/18 06:51 PT 11.4 SECONDS (9.7-12.2) 03/06/18 06:51 INR 1.0 03/06/18 06:51 APTT 27 SECONDS (21-34) 03/06/18 06:51
[2018-03-07] MEDS: ceFAZolin IV 1 gm in Dextrose 1 GM/50 ML BAG IVPB SCH ×2 (02:15→10:14)
--- NOTE | 2018-03-07 02:30 | PN ---
DATE: 03/06/2018 SUBJECTIVE: The patient, Louie, is for OR tomorrow. The patient has been seen by Dr. Mercer. She has a stomach tumor. PHYSICAL EXAMINATION: VITAL SIGNS: Blood pressure 98/64, pulse 83, respiratory rate 20, temperature 98.8. LUNGS: Clear. CARDIOVASCULAR SYSTEM: S1 and S2, regular. ABDOMEN: Soft. ASSESSMENT AND PLAN: Stomach tumor with bleeding, status post blood transfusion, status post esophagogastroduodenoscopy. The patient is for operating room. Medically stable for operating room. Echocardiogram is normal. Chest x-ray normal. Hemoglobin is 7.8. She will receive blood transfusion preoperatively. Amandeep Helms MD
[2018-03-07] MEDS: metroNIDAZOLE IV 500 mg/100 ml 500 MG/100 ML BAG IVPB SCH ×2 (02:45→10:15)
[2018-03-07] MEDS: Dextrose 5%/0.9% NS 1,000 ML IV PRN ×2 (06:00→21:30)
[2018-03-07 06:25] LABS: BASO % 0.2 % (0.0-2.0); HEMOGLOBIN 7.8 g/dL (11.0-16.0); LYMPH # 0.7 K/uL (1.0-4.3); MEAN CELL VOLUME 81.5 fL (81.0-99.0); MEAN CORPUSCULAR HEMOGLOBIN 26.8 pg (27.0-31.0); MEAN CORPUSCULAR HGB CONC 32.9 g/dL (33.0-37.0); MEAN PLATELET VOLUME 8.5 fL (7.2-11.7); MONO # 1.2 K/uL (0.0-0.8); MONO % 7.2 % (0.0-10.0); NEUT # 14.9 K/uL (1.8-7.0); NEUT % 88.6 % (50.0-75.0); PLATELET COUNT 281 K/uL (130-400); RED CELL DISTRIBUTION WIDTH 16.7 % (11.5-14.5); WHITE BLOOD COUNT 16.8 K/uL (4.8-10.8)
[2018-03-07 06:39] LABS: ALB/GLOB RATIO 1.4 (1.0-2.1); ALT/SGPT 51 U/L (9-52); AST/SGOT 32 U/L (14-36); BLOOD UREA NITROGEN 12 mg/dL (7-17); CALCIUM 7.7 mg/dl (8.6-10.4); GFR NON-AFRICAN AMERICAN > 60
--- NOTE | 2018-03-07 07:47 | CP.PCM.PN ---
Subjective - Date & Time of Evaluation Date of Evaluation: 03/07/18 Time of Evaluation: 07:45 - Subjective Subjective: General Surgery: Dr Mercer Pt S&E in ICU. NAEO. POD#1 s/p distal gastrectomy. Pt reports upper abdominal pain, controlled with HOUSING SPECIALIST. Denies n/v, f/c. No tachycardia. UMAIR with 50cc serosanguinous output. Making adequate urine. No other complaints. Objective - Vital Signs/Intake and Output Vital Signs (last 24 hours): Temp Pulse Resp BP Pulse Ox 97.0 F L 75 21 83/47 L 100 03/06/18 18:00 03/07/18 07:25 03/07/18 07:25 03/07/18 07:25 03/07/18 07:25 Intake and Output: 03/07/18 03/07/18 06:59 18:59 Intake Total 1150 100 Output Total 425 70 Balance 725 30 - Medications Medications: Current Medications Benzocaine/Menthol (Cepacol Sore Throat) 1 amanda MT Q2H PRN PRN Reason: Sore Throat Hydromorphone/Sodium Chloride (Dilaudid Sawdust Drier) 6 mg IV Q4H PRN; Protocol PRN Reason: Pain, Mild (1-3) Last Admin: 03/06/18 17:59 Dose: 6 mg Dextrose/Sodium Chloride (Dextrose 5%/0.9% Ns 1000 Ml) 1,000 mls @ 100 mls/hr IV CONT PRN PRN Reason: Hydration Last Admin: 03/07/18 06:00 Dose: 100 mls/hr Cefazolin Sodium/Dextrose (Ancef Iv 1 Gm Duplex) 1 gm in 50 mls @ 100 mls/hr IVPB Q8H ANNE; Protocol Stop: 03/07/18 11:29 Last Admin: 03/07/18 02:15 Dose: 100 mls/hr Metronidazole (Flagyl) 500 mg in 100 mls @ 100 mls/hr IVPB Q8H ANNE; Protocol Stop: 03/07/18 11:59 Last Admin: 03/07/18 02:45 Dose: 100 mls/hr Pantoprazole Sodium (Protonix Inj) 40 mg IVP Q12 ANNE Last Admin: 03/06/18 22:30 Dose: 40 mg - Labs Labs: 03/07/18 06:17 03/07/18 06:17 PT 11.4 SECONDS (9.7-12.2) 03/06/18 06:51 INR 1.0 03/06/18 06:51 APTT 27 SECONDS (21-34) 03/06/18 06:51 - Constitutional Appears: Non-toxic, No Acute Distress - Eye Exam Eye Exam: Normal appearance - ENT Exam ENT Exam: Mucous Membranes Dry - Respiratory Exam Respiratory Exam: absent: Accessory Muscle Use, Respiratory Distress - Cardiovascular Exam Cardiovascular Exam: REGULAR RHYTHM. absent: Tachycardia - GI/Abdominal Exam GI & Abdominal Exam: Soft, Tenderness (post-op and appropriate). absent: Distended, Firm Additional comments: dressing c/d/i - Neurological Exam Neurological Exam: Alert, Awake, Oriented x3 - Psychiatric Exam Psychiatric exam: Normal Affect, Normal Mood - Skin Skin Exam: Normal Color, Warm Assessment and Plan - Assessment and Plan (Free Text) Assessment: 58F POD#1 s/p distal gastrectomy w/ Bill Holder II and functional Verito-En-Y reconstruction for bleeding gastric mass Plan: cont NGT to suction OOB to chair HOLD anti-coagulation until HgB proven stable repeat H/H stat cepacol for NGT soreness would prefer pt remain in ICU til confirmed no further bleeding 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
[2018-03-07 07:56] LABS: HEMOGLOBIN 7.5 g/dL (11.0-16.0)
[2018-03-07 09:04] LABS: BANDS 2 % (0-2); LYMPHOCYTE 6 % (20-40); MONOCYTE 7 % (0-10); NEUTROPHIL 85 % (50-75); TOTAL CELLS COUNTED 100
[2018-03-07 09:05] LABS: ANISOCYTOSIS SLIGHT; HYPOCHROMIC SLIGHT; PLATELET ESTIMATE NORMAL (NORMAL)
[2018-03-07 09:06] LABS: POLYCHROMIC SLIGHT
[2018-03-07] MEDS ORDERED: Influenza Vaccine 60 mcg/0.5 mL SYR (4YR UP) IM ONE (10:00)
[2018-03-07] MEDS: Benzocaine/Menthol (Cepacol) Lozenge MT PRN ×2 (11:31→20:43)
--- NOTE | 2018-03-07 13:26 | CP.PCM.PN ---
Subjective - Date & Time of Evaluation Date of Evaluation: 03/07/18 Time of Evaluation: 13:23 - Subjective Subjective: Patient reports having incisional pain and nausea. She denies having vomiting. She remains NPO except for ice chips. Objective - Vital Signs/Intake and Output Vital Signs (last 24 hours): Temp Pulse Resp BP Pulse Ox 97.7 F 78 18 104/59 L 100 03/07/18 13:08 03/07/18 13:08 03/07/18 13:08 03/07/18 13:08 03/07/18 13:08 Intake and Output: 03/07/18 03/07/18 06:59 18:59 Intake Total 1150 660 Output Total 425 400 Balance 725 260 - Medications Medications: Current Medications Benzocaine/Menthol (Cepacol Sore Throat) 1 amanda MT Q2H PRN PRN Reason: Sore Throat Last Admin: 03/07/18 11:31 Dose: 1 aamnda Hydromorphone/Sodium Chloride (Dilaudid Dealer Sales Rep) 6 mg IV Q4H PRN; Protocol PRN Reason: Pain, Mild (1-3) Last Admin: 03/06/18 17:59 Dose: 6 mg Dextrose/Sodium Chloride (Dextrose 5%/0.9% Ns 1000 Ml) 1,000 mls @ 100 mls/hr IV CONT PRN PRN Reason: Hydration Last Admin: 03/07/18 06:00 Dose: 100 mls/hr Pantoprazole Sodium (Protonix Inj) 40 mg IVP Q12 ANNE Last Admin: 03/07/18 09:32 Dose: 40 mg Saliva Substitute (Mouth Kote 236 Ml) 1 ml MM Q2H PRN PRN Reason: Dry mouth Last Admin: 03/07/18 11:30 Dose: 1 ml - Labs Labs: 03/07/18 07:51 03/07/18 06:17 PT 11.4 SECONDS (9.7-12.2) 03/06/18 06:51 INR 1.0 03/06/18 06:51 APTT 27 SECONDS (21-34) 03/06/18 06:51 - Constitutional Appears: In Acute Distress - Head Exam Head Exam: ATRAUMATIC, NORMOCEPHALIC - Eye Exam Eye Exam: EOMI, PERRL - Neck Exam Neck Exam: absent: Lymphadenopathy, Thyromegaly - Respiratory Exam Respiratory Exam: NORMAL BREATHING PATTERN. absent: Rales, Rhonchi, Wheezes - Cardiovascular Exam Cardiovascular Exam: REGULAR RHYTHM, +S1, +S2. absent: Gallop, Rubs, Murmur - GI/Abdominal Exam GI & Abdominal Exam: Soft, Tenderness, Hypoactive Bowel Sounds. 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 Will check pathology results. Post op care as per Dr. Mercer/ Status: Acute
--- NOTE | 2018-03-07 13:48 | CP.PCM.PCO ---
Physician Communication Note - Physician Communication Note Physician Communication Note: as per Dr. Mercer- transfuse 1 unit pRBCs due to tachycardia with movemen
--- NOTE | 2018-03-07 21:25 | CP.PCM.PN ---
Objective - Vital Signs/Intake and Output Vital Signs (last 24 hours): Temp Pulse Resp BP Pulse Ox 97.7 F 68 17 100/58 L 100 03/07/18 16:00 03/07/18 19:00 03/07/18 19:00 03/07/18 18:02 03/07/18 19:00 Intake and Output: 03/07/18 03/08/18 18:59 06:59 Intake Total 1335 100 Output Total 580 30 Balance 755 70 - Medications Medications: Current Medications Benzocaine/Menthol (Cepacol Sore Throat) 1 amanda MT Q2H PRN PRN Reason: Sore Throat Last Admin: 03/07/18 20:43 Dose: 1 amanda Hydromorphone/Sodium Chloride (Dilaudid Truss Builder) 6 mg IV Q4H PRN; Protocol PRN Reason: Pain, Mild (1-3) Last Admin: 03/06/18 17:59 Dose: 6 mg Dextrose/Sodium Chloride (Dextrose 5%/0.9% Ns 1000 Ml) 1,000 mls @ 100 mls/hr IV CONT PRN PRN Reason: Hydration Last Admin: 03/07/18 06:00 Dose: 100 mls/hr Pantoprazole Sodium (Protonix Inj) 40 mg IVP Q12 ANNE Last Admin: 03/07/18 09:32 Dose: 40 mg Saliva Substitute (Mouth Kote 236 Ml) 1 ml MM Q2H PRN PRN Reason: Dry mouth Last Admin: 03/07/18 20:38 Dose: 1 ml - Labs Labs: 03/07/18 07:51 03/07/18 06:17 PT 11.4 SECONDS (9.7-12.2) 03/06/18 06:51 INR 1.0 03/06/18 06:51 APTT 27 SECONDS (21-34) 03/06/18 06:51
--- NOTE | 2018-03-08 02:33 | PN ---
DATE: 03/07/2018 CHIEF COMPLAINT: The patient is postop and she is in pain. She is afebrile. She denies any shortness of breath. She has some postop cough. No chest pain. PHYSICAL EXAMINATION: VITAL SIGNS: Blood pressure 110/70, pulse 77, respiratory rate 22, temperature 99. LUNGS: Clear. No rales. No rhonchi. CVS: S1, S2 regular. ABDOMEN: Postop, bowel sounds are decreased. ASSESSMENT: 1. Status post partial gastrectomy for a gastric tumor. 2. Dehydration. 3. Anemia due to gastrointestinal bleed. PLAN: Continue current medication. Monitor the patient. Amandeep Helms MD
--- NOTE | 2018-03-08 02:41 | PN ---
DATE: 03/07/2018 SUBJECTIVE: The patient is postop. The patient is afebrile. She is in pain. She is off ventilator. She is breathing normal. PHYSICAL EXAMINATION: VITAL SIGNS: Blood pressure is 107/70, pulse 71, respiratory rate 20, temperature 99. LUNGS: Clear. CVS: S1, S2 regular. ABDOMEN: bowel sounds present. ASSESSMENT: 1. Status post distal gastrectomy for gastrointestinal stromal tumor. 2. Anemia due to gastrointestinal bleed. 3. Dehydration. PLAN: Continue current medication. Monitor the patient. Amandeep Helms MD
[2018-03-08 07:52] LABS: BASO % 0.3 % (0.0-2.0); EOS % 0.1 % (0.0-4.0); HEMOGLOBIN 8.6 g/dL (11.0-16.0); LYMPH # 1.1 K/uL (1.0-4.3); LYMPH % 9.3 % (20.0-40.0); MEAN CELL VOLUME 82.1 fL (81.0-99.0); MEAN CORPUSCULAR HEMOGLOBIN 27.3 pg (27.0-31.0); MEAN CORPUSCULAR HGB CONC 33.2 g/dL (33.0-37.0); MEAN PLATELET VOLUME 8.3 fL (7.2-11.7); MONO # 1.1 K/uL (0.0-0.8); NEUT # 9.8 K/uL (1.8-7.0); NEUT % 81.3 % (50.0-75.0); PLATELET COUNT 285 K/uL (130-400); RBC 3.17 Mil/uL (3.80-5.20); RED CELL DISTRIBUTION WIDTH 16.4 % (11.5-14.5)
--- NOTE | 2018-03-08 08:08 | CP.PCM.PN ---
Addendum entered and electronically signed by Maggie Powell DO 03/08/18 08:37: Need to monitor UOP in post op patient, keep Hoffman in place. Addendum entered and electronically signed by Guille Richards DO 03/08/18 08:11: Patient seen and examined this morning. Denies abdominal pain. Abdomen is soft, tender along surgical incision site. HR noted to be in ~115-120's. BP ~92/45. Will transfuse 1 uPRBC. Original Note: Subjective - Date & Time of Evaluation Date of Evaluation: 03/08/18 Time of Evaluation: 08:06 - Subjective Subjective: General surgery progress note for Dr. Veronica Powell, PGY-2 Pt S & E at bedside at 0710 Per nursing, Urine output 350cc/12hrs, UMAIR with 40cc serosanguinous output/12hrs. Pt minimally using SODA DRIER FEEDER, has been moving in bed overnight. Reports no abdominal pain. Denies N & V. afebrile over last 24 hrs. Objective - Vital Signs/Intake and Output Vital Signs (last 24 hours): Temp Pulse Resp BP Pulse Ox 98 F 112 H 18 100/57 L 100 03/08/18 04:00 03/08/18 07:00 03/08/18 07:00 03/08/18 06:02 03/08/18 07:00 Intake and Output: 03/08/18 03/08/18 06:59 18:59 Intake Total 100 1200 Output Total 30 390 Balance 70 810 - Medications Medications: Current Medications Benzocaine/Menthol (Cepacol Sore Throat) 1 amanda MT Q2H PRN PRN Reason: Sore Throat Last Admin: 03/07/18 20:43 Dose: 1 amnada Hydromorphone/Sodium Chloride (Dilaudid Range Conservationist) 6 mg IV Q4H PRN; Protocol PRN Reason: Pain, Mild (1-3) Last Admin: 03/06/18 17:59 Dose: 6 mg Dextrose/Sodium Chloride (Dextrose 5%/0.9% Ns 1000 Ml) 1,000 mls @ 100 mls/hr IV CONT PRN PRN Reason: Hydration Last Admin: 03/07/18 21:30 Dose: 100 mls/hr Pantoprazole Sodium (Protonix Inj) 40 mg IVP Q12 ANNE Last Admin: 03/07/18 21:31 Dose: 40 mg Saliva Substitute (Mouth Kote 236 Ml) 1 ml MM Q2H PRN PRN Reason: Dry mouth Last Admin: 03/07/18 20:38 Dose: 1 ml - Labs Labs: 03/08/18 07:49 03/07/18 06:17 PT 11.4 SECONDS (9.7-12.2) 03/06/18 06:51 INR 1.0 03/06/18 06:51 APTT 27 SECONDS (21-34) 03/06/18 06:51 - Constitutional Appears: Non-toxic, No Acute Distress - Head Exam Head Exam: ATRAUMATIC, NORMAL INSPECTION, NORMOCEPHALIC - Eye Exam Eye Exam: EOMI, Normal appearance - ENT Exam ENT Exam: Mucous Membranes Moist, Normal Exam - Neck Exam Neck Exam: Full ROM, Normal Inspection - Respiratory Exam Respiratory Exam: NORMAL BREATHING PATTERN - Cardiovascular Exam Cardiovascular Exam: REGULAR RHYTHM, +S1, +S2 - GI/Abdominal Exam GI & Abdominal Exam: Soft, Tenderness (over incision site). absent: Distended, Firm, Guarding Additional comments: dressing removed, eron in place- no erythema noted - Neurological Exam Neurological Exam: Alert, Awake, CN II-XII Intact, Oriented x3 - Psychiatric Exam Psychiatric exam: Normal Affect, Normal Mood - Skin Skin Exam: Dry, Intact, Normal Color, Warm Assessment and Plan - Assessment and Plan (Free Text) Assessment: 58F POD#2 s/p distal gastrectomy w/ Bill Hodler II and functional Verito-En-Y reconstruction for bleeding gastric mass Plan: Pain control IVF Cepacol NPO for now Monitor for bowel function OOBTC Encourage IS use activity as tolerated PT Daily labs I/O's Transfuse 1 unit pRBC today Monitor for bleeding DW Dr. Sylvie Powell, PGY-2
[2018-03-08 08:09] LABS: BLOOD UREA NITROGEN 11 mg/dL (7-17); CALCIUM 7.8 mg/dl (8.6-10.4); GFR NON-AFRICAN AMERICAN > 60
[2018-03-08 09:14] LABS: BANDS 1 % (0-2); LYMPHOCYTE 7 % (20-40); MONOCYTE 10 % (0-10); NEUTROPHIL 82 % (50-75); TOTAL CELLS COUNTED 100
[2018-03-08 09:15] LABS: ANISOCYTOSIS SLIGHT; PLATELET ESTIMATE NORMAL (NORMAL)
[2018-03-08 09:16] LABS: HYPOCHROMIC SLIGHT; LARGE PLATELETS PRESENT; MICROCYTOSIS SLIGHT; OVALOCYTES SLIGHT; POIKILOCYTOSIS SLIGHT; POLYCHROMIC SLIGHT; TEARDROP CELLS SLIGHT
[2018-03-08] MEDS ORDERED: Sodium Phosphate 15 MMOLE in Sodium Chloride 0.9% 250 ML IVPB ONE (11:00)
[2018-03-08 14:15] LABS: HEMOGLOBIN 10.1 g/dL (11.0-16.0); MEAN CORPUSCULAR HEMOGLOBIN 27.5 pg (27.0-31.0); MEAN CORPUSCULAR HGB CONC 33.5 g/dL (33.0-37.0); MEAN PLATELET VOLUME 7.9 fL (7.2-11.7); RBC 3.69 Mil/uL (3.80-5.20); RED CELL DISTRIBUTION WIDTH 16.1 % (11.5-14.5)
--- NOTE | 2018-03-08 20:11 | CP.PCM.PN ---
Subjective - Subjective Subjective: Patient is out of ICU she has some postoperative pain she has no fever no chills no nausea vomiting diarrhea. Patient had distal gastrectomy for our stomach tumor. Objective - Vital Signs/Intake and Output Vital Signs (last 24 hours): Temp Pulse Resp BP Pulse Ox 98.6 F 89 20 126/98 H 99 03/08/18 16:00 03/08/18 16:02 03/08/18 16:02 03/08/18 16:02 03/08/18 16:02 Intake and Output: 03/08/18 03/09/18 18:59 06:59 Intake Total 2435 Output Total 745 Balance 1690 - Medications Medications: Current Medications Benzocaine/Menthol (Cepacol Sore Throat) 1 amanda MT Q2H PRN PRN Reason: Sore Throat Last Admin: 03/07/18 20:43 Dose: 1 amanda Hydromorphone/Sodium Chloride (Dilaudid Pellet Machine Operator) 6 mg IV Q4H PRN; Protocol PRN Reason: Pain, Mild (1-3) Last Admin: 03/08/18 15:03 Dose: 6 mg Dextrose/Sodium Chloride (Dextrose 5%/0.9% Ns 1000 Ml) 1,000 mls @ 100 mls/hr IV CONT PRN PRN Reason: Hydration Last Admin: 03/07/18 21:30 Dose: 100 mls/hr Pantoprazole Sodium (Protonix Inj) 40 mg IVP Q12 [facility] Last Admin: 03/08/18 09:40 Dose: 40 mg Saliva Substitute (Mouth Kote 236 Ml) 1 ml MM Q2H PRN PRN Reason: Dry mouth Last Admin: 03/08/18 09:40 Dose: 1 ml - Labs Labs: 03/08/18 14:04 03/08/18 07:49 PT 11.4 SECONDS (9.7-12.2) 03/06/18 06:51 INR 1.0 03/06/18 06:51 APTT 27 SECONDS (21-34) 03/06/18 06:51
[2018-03-08] MEDS: Dextrose 5%/0.9% NS 1,000 ML IV PRN (22:14)
--- NOTE | 2018-03-09 07:07 | OP ---
PROCEDURE DATE: 03/06/2018 PREOPERATIVE DIAGNOSIS: Gastric tumor. POSTOPERATIVE DIAGNOSIS: Gastric tumor. PROCEDURE CARRIED OUT: Partial gastrectomy with Billroth II gastrojejunostomy with enteroenterostomy for functional Verito-en-Y repair. SURGEON: Franki Mercer Jr., MD HAND COREMAKER: Dr. Martinez. ANESTHESIOLOGIST: Mr. Martinez. INDICATIONS: The patient is a middle-aged woman with GI bleeding, found to have a large gastric tumor from posterior wall of stomach on endoscopy. OPERATIVE FINDINGS: There was no evidence of liver metastasis. There were no other intraabdominal abnormalities. Pelvis was normal, etc. The tumor was in posterior wall of the stomach. On frozen section by Dr. 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 Initially, we resected the tumor and submitted it with margins, and these margins were clean and the pathology was evaluated. Permanent sections will be done for permanent diagnosis. Nonetheless at this point for variety of reasons, we carried out a distal gastrectomy with proximal clean margins and reconstructed this with a functional Verito-en-Y gastrojejunostomy with an enteroenterostomy below this. ESTIMATED BLOOD LOSS: Blood loss for the procedure was 150 mL. DESCRIPTION OF PROCEDURE: The patient was given general anesthesia, intravenous antibiotics. The abdomen was explored. A midline incision was carried out. The tumor was identified, mobilized, and resected, sent for frozen section. After this had been done, it was reconstructed by resecting the distal portion of the stomach and carrying out stapled anastomosis. This was done behind the colon. The stomach was carefully brought down. The abdomen was then closed with running suture of Novafil and PDS, and the skin was closed with skin clips. Blood loss for the procedure was 150 mL. Franki Mercer Jr., MD
[2018-03-09 07:53] LABS: BASO # 0.1 K/uL (0.0-0.2); BASO % 0.7 % (0.0-2.0); EOS % 0.5 % (0.0-4.0); HEMOGLOBIN 9.7 g/dL (11.0-16.0); LYMPH # 1.2 K/uL (1.0-4.3); LYMPH % 13.4 % (20.0-40.0); MEAN CELL VOLUME 82.6 fL (81.0-99.0); MEAN CORPUSCULAR HEMOGLOBIN 27.8 pg (27.0-31.0); MEAN CORPUSCULAR HGB CONC 33.7 g/dL (33.0-37.0); MONO # 0.9 K/uL (0.0-0.8); MONO % 10.3 % (0.0-10.0); NEUT # 6.7 K/uL (1.8-7.0); NEUT % 75.1 % (50.0-75.0); RBC 3.5 Mil/uL (3.80-5.20); RED CELL DISTRIBUTION WIDTH 16.3 % (11.5-14.5); WHITE BLOOD COUNT 8.9 K/uL (4.8-10.8)
[2018-03-09 08:12] LABS: ALB/GLOB RATIO 1.2 (1.0-2.1); ALBUMIN 2.7 g/dL (3.5-5.0); ALT/SGPT 39 U/L (9-52); AST/SGOT 25 U/L (14-36); BLOOD UREA NITROGEN 7 mg/dL (7-17); CALCIUM 7.8 mg/dl (8.6-10.4); GFR NON-AFRICAN AMERICAN > 60
[2018-03-09] MEDS ORDERED: Potassium & Sodium Phosphate PO ONE ×3 (09:17→16:00)
[2018-03-09] MEDS ORDERED: Potassium Chloride 20 mEq ER Tab PO ONE (09:19)
[2018-03-09] MEDS: Enoxaparin 40 mg Syringe SC SCH (10:21)
--- NOTE | 2018-03-09 10:43 | CP.PCM.PN ---
Subjective - Date & Time of Evaluation Date of Evaluation: 03/09/18 Time of Evaluation: 10:40 - Subjective Subjective: Surgery PT seen and examined. c/o abd pain. On EMERGENCY TELECOMMUNICATIONS DISPATCHER. Denies nauea, vomiting. REports flatus. No BM. Tolerating CLD. NGT in place. No output from NGT. Castaneda in place. Objective - Vital Signs/Intake and Output Vital Signs (last 24 hours): Temp Pulse Resp BP Pulse Ox 97.6 F 92 H 20 146/81 99 03/09/18 08:02 03/09/18 08:02 03/09/18 08:02 03/09/18 08:02 03/09/18 08:02 Intake and Output: 03/09/18 03/09/18 06:59 18:59 Intake Total 600 800 Output Total 215 610 Balance 385 190 - Medications Medications: Current Medications Acetaminophen (Tylenol 325mg Tab) 650 mg PO Q6 PRN PRN Reason: pain, mod Benzocaine/Menthol (Cepacol Sore Throat) 1 amanda MT Q2H PRN PRN Reason: Sore Throat Last Admin: 03/07/18 20:43 Dose: 1 amanda Enoxaparin Sodium (Lovenox) 40 mg SC DAILY [facility] Last Admin: 03/09/18 10:21 Dose: 40 mg Hydromorphone HCl (Dilaudid) 0.5 mg IVP Q4H PRN PRN Reason: breakthrough pain Potassium Chloride 20 meq/ (Dextrose/Sodium Chloride) 1,010 mls @ 100 mls/hr IV Q10H [facility] Pantoprazole Sodium (Protonix Inj) 40 mg IVP Q12 [facility] Last Admin: 03/09/18 10:21 Dose: 40 mg Potassium Phos/Sodium Phos (Neutra-Phos) 1 pkt PO ONCE ONE Stop: 03/09/18 16:01 Saliva Substitute (Mouth Kote 236 Ml) 1 ml MM Q2H PRN PRN Reason: Dry mouth Last Admin: 03/08/18 09:40 Dose: 1 ml - Labs Labs: 03/09/18 07:43 03/09/18 07:43 PT 11.4 SECONDS (9.7-12.2) 03/06/18 06:51 INR 1.0 03/06/18 06:51 APTT 27 SECONDS (21-34) 03/06/18 06:51 - Constitutional Appears: No Acute Distress - Head Exam Head Exam: ATRAUMATIC, NORMAL INSPECTION, NORMOCEPHALIC - Eye Exam Eye Exam: EOMI, Normal appearance, PERRL Pupil Exam: NORMAL ACCOMODATION, PERRL - ENT Exam ENT Exam: Mucous Membranes Moist, Normal Exam Additional comments: NGT in place. No output. - Neck Exam Neck Exam: Full ROM, Normal Inspection. absent: Lymphadenopathy - Respiratory Exam Respiratory Exam: NORMAL BREATHING PATTERN - GI/Abdominal Exam GI & Abdominal Exam: Soft, Tenderness. absent: Distended Additional comments: INcisoin C/D/I. Drain 25cc ss. - Exam Exam: NORMAL INSPECTION (Castaneda in place) - Extremities Exam Extremities Exam: Full ROM, Normal Capillary Refill, Normal Inspection. absent: Joint Swelling, Pedal Edema - Back Exam Back Exam: NORMAL INSPECTION - Neurological Exam Neurological Exam: Alert, Awake, CN II-XII Intact, Normal Gait, Oriented x3 - Psychiatric Exam Psychiatric exam: Normal Affect, Normal Mood - Skin Skin Exam: Dry, Intact, Normal Color, Warm Assessment and Plan - Assessment and Plan (Free Text) Assessment: 58F POD#3 s/p distal gastrectomy w/ Bill Holder II and functional Verito-En-Y reconstruction for bleeding gastric mass Plan: Pain control IVF Cepacol CLD Monitor for bowel function OOBTC Encourage IS use activity as tolerated PT Daily labs I/O's DC castaneda Monitor for bleeding DW Dr. Mercer
[2018-03-09] MEDS: Potassium Chloride 20 MEQ in Dextrose 5%/0.9% NS 1,000 ML IV SCH ×2 (11:58→22:10)
[2018-03-09] MEDS: HYDROmorphone 0.5 mg/0.5 ml ISec IVP PRN ×2 (12:16→16:11)
--- NOTE | 2018-03-09 13:27 | CP.PCM.CON ---
History of Present Illness - History of Present Illness History of Present Illness: 55 year old male with PMH of HIV, HepC, DM, CKD and IVDA was seen and examined at bedside s/p positive ADRIENNE for endocarditis. Patient was admitted to ED for tachycardia, AMS secondary to IVDA and transferred to ICU due to possible septic shock. Patient also had episodes of hyponatremia and SAPPHIRE and one stable, transferred to floor and was consulted auto parker to r/o endocarditis. Patient states minor chest pain but denies any fever, dizziness, SOB, and N/V/D/C. PMH: HIV, HepC, DM, CKD, IVDA PSH: None Family hx: DM Social hx: + ETOH, current smoker (30y+), Heroin Past Patient History - Past Medical History & Family History Past Medical History?: No - Past Social History Smoking Status: Never Smoked Alcohol: None - CARDIAC Hx Hypercholesterolemia: Yes - PULMONARY Hx Respiratory Disorders: No - NEUROLOGICAL Hx Neurological Disorder: No - HEENT Hx HEENT Problems: No - RENAL Hx Chronic Kidney Disease: No - ENDOCRINE/METABOLIC Hx Endocrine Disorders: No - HEMATOLOGICAL/ONCOLOGICAL Hx Blood Disorders: No - INTEGUMENTARY Hx Dermatological Problems: No - MUSCULOSKELETAL/RHEUMATOLOGICAL Hx Musculoskeletal Disorders: No Hx Falls: No - GASTROINTESTINAL Other/Comment: c/o black stool - GENITOURINARY/GYNECOLOGICAL Hx Genitourinary Disorders: No - PSYCHIATRIC Hx Substance Use: No - SURGICAL HISTORY Hx Surgeries: Yes Other/Comment: minor - ANESTHESIA Hx Anesthesia: Yes Hx Anesthesia Reactions: No Hx Malignant Hyperthermia: No Has any member of the family had a problem w/ anesthesia?: No Meds Allergies/Adverse Reactions: Allergies Allergy/AdvReac Type Severity Reaction Status Date / Time No Known Allergies Allergy Verified 03/03/18 09:47 - Medications Medications: Current Medications Acetaminophen (Tylenol 325mg Tab) 650 mg PO Q6 PRN PRN Reason: pain, mod Benzocaine/Menthol (Cepacol Sore Throat) 1 amanda MT Q2H PRN PRN Reason: Sore Throat Last Admin: 03/07/18 20:43 Dose: 1 amanda Enoxaparin Sodium (Lovenox) 40 mg SC DAILY [facility] Last Admin: 03/09/18 10:21 Dose: 40 mg Hydromorphone HCl (Dilaudid) 0.5 mg IVP Q4H PRN PRN Reason: breakthrough pain Last Admin: 03/09/18 12:16 Dose: 0.5 mg Potassium Chloride 20 meq/ (Dextrose/Sodium Chloride) 1,010 mls @ 100 mls/hr IV Q10H [facility] Last Admin: 03/09/18 11:58 Dose: 100 mls/hr Pantoprazole Sodium (Protonix Inj) 40 mg IVP Q12 [facility] Last Admin: 03/09/18 10:21 Dose: 40 mg Potassium Phos/Sodium Phos (Neutra-Phos) 1 pkt PO ONCE ONE Stop: 03/09/18 16:01 Saliva Substitute (Mouth Kote 236 Ml) 1 ml MM Q2H PRN PRN Reason: Dry mouth Last Admin: 03/08/18 09:40 Dose: 1 ml Results - Vital Signs Recent Vital Signs: Last Vital Signs Temp 97.6 F 03/09/18 08:02 Pulse 92 H 03/09/18 08:02 Resp 20 03/09/18 08:02 BP 146/81 03/09/18 08:02 Pulse Ox 99 03/09/18 08:02 - Labs Result Diagrams: 03/09/18 07:43 03/09/18 07:43 Labs: Laboratory Results - last 24 hr 03/08/18 03/09/18 03/09/18 14:04 07:43 07:43 WBC 13.0 H 8.9 RBC 3.69 L 3.50 L Hgb 10.1 L 9.7 L Hct 30.3 L 28.9 L MCV 82.0 82.6 MCH 27.5 27.8 MCHC 33.5 33.7 RDW 16.1 H 16.3 H Plt Count 277 252 MPV 7.9 8.0 Neut % (Auto) 75.1 H Lymph % (Auto) 13.4 L Chambers % (Auto) 10.3 H Eos % (Auto) 0.5 Baso % (Auto) 0.7 Neut # (Auto) 6.7 Lymph # (Auto) 1.2 Chambers # (Auto) 0.9 H Eos # (Auto) 0.0 Baso # (Auto) 0.1 Sodium 140 Potassium 3.3 L Chloride 104 Carbon Dioxide 30 Anion Gap 9 L BUN 7 Creatinine 0.5 L Est GFR ( Amer) > 60 Est GFR (Non-Af Amer) > 60 Random Glucose 117 H Calcium 7.8 L Phosphorus 2.3 L Magnesium 2.0 Total Bilirubin 1.0 AST 25 ALT 39 Alkaline Phosphatase 56 Total Protein 5.0 L Albumin 2.7 L Globulin 2.3 Albumin/Globulin Ratio 1.2
--- NOTE | 2018-03-09 22:11 | CP.PCM.PN ---
Objective - Vital Signs/Intake and Output Vital Signs (last 24 hours): Temp Pulse Resp BP Pulse Ox 98.5 F 83 20 124/72 100 03/09/18 16:00 03/09/18 16:00 03/09/18 16:00 03/09/18 16:00 03/09/18 16:00 Intake and Output: 03/09/18 03/10/18 18:59 06:59 Intake Total 1750 Output Total 1120 Balance 630 - Medications Medications: Current Medications Acetaminophen (Tylenol 325mg Tab) 650 mg PO Q6 PRN PRN Reason: pain, mod Benzocaine/Menthol (Cepacol Sore Throat) 1 amanda MT Q2H PRN PRN Reason: Sore Throat Last Admin: 03/07/18 20:43 Dose: 1 amanda Enoxaparin Sodium (Lovenox) 40 mg SC DAILY [facility] Last Admin: 03/09/18 10:21 Dose: 40 mg Hydromorphone HCl (Dilaudid) 0.5 mg IVP Q4H PRN PRN Reason: breakthrough pain Last Admin: 03/09/18 16:11 Dose: 0.5 mg Potassium Chloride 20 meq/ (Dextrose/Sodium Chloride) 1,010 mls @ 100 mls/hr IV Q10H [facility] Last Admin: 03/09/18 22:10 Dose: 100 mls/hr Pantoprazole Sodium (Protonix Inj) 40 mg IVP Q12 [facility] Last Admin: 03/09/18 22:08 Dose: 40 mg Saliva Substitute (Mouth Kote 236 Ml) 1 ml MM Q2H PRN PRN Reason: Dry mouth Last Admin: 03/08/18 09:40 Dose: 1 ml - Labs Labs: 03/09/18 07:43 03/09/18 07:43 PT 11.4 SECONDS (9.7-12.2) 03/06/18 06:51 INR 1.0 03/06/18 06:51 APTT 27 SECONDS (21-34) 03/06/18 06:51
[2018-03-09] MEDS: Benzocaine/Menthol (Cepacol) Lozenge MT PRN (22:14)
[2018-03-10] MEDS: Potassium Chloride 20 MEQ in Dextrose 5%/0.9% NS 1,000 ML IV SCH ×3 (06:19→21:03)
[2018-03-10 06:37] LABS: BASO % 0.6 % (0.0-2.0); EOS # 0.1 K/uL (0.0-0.7); EOS % 1.8 % (0.0-4.0); HEMOGLOBIN 10.1 g/dL (11.0-16.0); LYMPH # 1.2 K/uL (1.0-4.3); LYMPH % 17.4 % (20.0-40.0); MEAN CELL VOLUME 80.9 fL (81.0-99.0); MEAN CORPUSCULAR HEMOGLOBIN 27.5 pg (27.0-31.0); MEAN CORPUSCULAR HGB CONC 33.9 g/dL (33.0-37.0); MEAN PLATELET VOLUME 7.4 fL (7.2-11.7); MONO # 0.7 K/uL (0.0-0.8); MONO % 10.3 % (0.0-10.0); NEUT # 4.8 K/uL (1.8-7.0); NEUT % 69.9 % (50.0-75.0); RBC 3.67 Mil/uL (3.80-5.20); RED CELL DISTRIBUTION WIDTH 15.8 % (11.5-14.5); WHITE BLOOD COUNT 6.8 K/uL (4.8-10.8)
[2018-03-10 07:39] LABS: ALB/GLOB RATIO 1.1 (1.0-2.1); ALBUMIN 2.7 g/dL (3.5-5.0); ALT/SGPT 39 U/L (9-52); AST/SGOT 25 U/L (14-36); BLOOD UREA NITROGEN 4 mg/dL (7-17); CALCIUM 8.2 mg/dl (8.6-10.4); GFR NON-AFRICAN AMERICAN > 60
--- NOTE | 2018-03-10 09:20 | CP.PCM.PN ---
Subjective - Date & Time of Evaluation Date of Evaluation: 03/10/18 Time of Evaluation: 09:15 - Subjective Subjective: f/u g ulcer, GI bleed. s/p surgery. Family is present Denies fever, SZ, SOB, TOVAR, cough, hematuria, hemoptysis, RB, melena. Objective - Vital Signs/Intake and Output Vital Signs (last 24 hours): Temp Pulse Resp BP Pulse Ox 98.4 F 92 H 20 134/85 99 03/10/18 08:06 03/10/18 08:06 03/10/18 08:06 03/10/18 08:06 03/10/18 08:06 Intake and Output: 03/10/18 03/10/18 06:59 18:59 Intake Total 1350 920 Output Total 200 750 Balance 1150 170 - Medications Medications: Current Medications Acetaminophen (Tylenol 325mg Tab) 650 mg PO Q6 PRN PRN Reason: pain, mod Benzocaine/Menthol (Cepacol Sore Throat) 1 amanda MT Q2H PRN PRN Reason: Sore Throat Last Admin: 03/09/18 22:14 Dose: 1 amanda Enoxaparin Sodium (Lovenox) 40 mg SC DAILY [facility] Last Admin: 03/09/18 10:21 Dose: 40 mg Hydromorphone HCl (Dilaudid) 0.5 mg IVP Q4H PRN PRN Reason: breakthrough pain Last Admin: 03/09/18 16:11 Dose: 0.5 mg Potassium Chloride 20 meq/ (Dextrose/Sodium Chloride) 1,010 mls @ 100 mls/hr IV Q10H [facility] Last Admin: 03/10/18 06:19 Dose: Not Given Pantoprazole Sodium (Protonix Inj) 40 mg IVP Q12 [facility] Last Admin: 03/09/18 22:08 Dose: 40 mg Saliva Substitute (Mouth Kote 236 Ml) 1 ml MM Q2H PRN PRN Reason: Dry mouth Last Admin: 03/08/18 09:40 Dose: 1 ml - Labs Labs: 03/10/18 06:27 03/10/18 06:27 PT 11.4 SECONDS (9.7-12.2) 03/06/18 06:51 INR 1.0 03/06/18 06:51 APTT 27 SECONDS (21-34) 03/06/18 06:51 - Constitutional Appears: Non-toxic - ENT Exam Additional comments: NG t in place - Respiratory Exam Respiratory Exam: Clear to Ausculation Bilateral - Cardiovascular Exam Cardiovascular Exam: RRR - GI/Abdominal Exam GI & Abdominal Exam: Soft, Tenderness. absent: Normal Bowel Sounds, Rebound - Neurological Exam Neurological Exam: Alert, Awake, Oriented x3 Assessment and Plan (1) Anemia due to blood loss Assessment & Plan: gastric ulcer, mass Status: Acute (2) GI bleed Assessment & Plan: stable . Results given to pt. 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 s/p surgery B II. f/u as per surgery. Status: Acute
[2018-03-10] MEDS: Enoxaparin 40 mg Syringe SC SCH (09:47)
--- NOTE | 2018-03-10 10:16 | CP.PCM.PN ---
Subjective - Date & Time of Evaluation Date of Evaluation: 03/10/18 Time of Evaluation: 07:15 - Subjective Subjective: General Surgery Pt seen and examined. Pain improving. Denies nausea, emesis, flatus, BM. Tolerating CLD. NGT in place with no output Objective - Vital Signs/Intake and Output Vital Signs (last 24 hours): Temp Pulse Resp BP Pulse Ox 98.4 F 92 H 20 134/85 99 03/10/18 08:06 03/10/18 08:06 03/10/18 08:06 03/10/18 08:06 03/10/18 08:06 Intake and Output: 03/10/18 03/10/18 06:59 18:59 Intake Total 1350 920 Output Total 200 750 Balance 1150 170 - Medications Medications: Current Medications Acetaminophen (Tylenol 325mg Tab) 650 mg PO Q6 PRN PRN Reason: pain, mod Benzocaine/Menthol (Cepacol Sore Throat) 1 amanda MT Q2H PRN PRN Reason: Sore Throat Last Admin: 03/09/18 22:14 Dose: 1 amanda Enoxaparin Sodium (Lovenox) 40 mg SC DAILY [facility] Last Admin: 03/10/18 09:47 Dose: 40 mg Hydromorphone HCl (Dilaudid) 0.5 mg IVP Q4H PRN PRN Reason: breakthrough pain Last Admin: 03/09/18 16:11 Dose: 0.5 mg Potassium Chloride 20 meq/ (Dextrose/Sodium Chloride) 1,010 mls @ 100 mls/hr IV Q10H [facility] Last Admin: 03/10/18 06:19 Dose: Not Given Pantoprazole Sodium (Protonix Inj) 40 mg IVP Q12 [facility] Last Admin: 03/10/18 09:47 Dose: 40 mg Saliva Substitute (Mouth Kote 236 Ml) 1 ml MM Q2H PRN PRN Reason: Dry mouth Last Admin: 03/08/18 09:40 Dose: 1 ml - Labs Labs: 03/10/18 06:27 03/10/18 06:27 PT 11.4 SECONDS (9.7-12.2) 03/06/18 06:51 INR 1.0 03/06/18 06:51 APTT 27 SECONDS (21-34) 03/06/18 06:51 Assessment and Plan - Assessment and Plan (Free Text) Assessment: 58F POD#4 s/p distal gastrectomy w/ Bill Holder II and functional Verito-En-Y reconstruction for bleeding gastric mass Plan: Pain control IVF CLD PT Replete electrolytes PRN I/O's DC'ed NGT Monitor for bleeding, bowel function D/W Dr. Sylvie Canales PGY4
--- NOTE | 2018-03-10 17:19 | CP.PCM.CON ---
History of Present Illness - History of Present Illness History of Present Illness: 58 year old female with a history of hyperlipidemia, admitted with anemia and GI bleeding, found to have a gastric mass s/p distal gastrectomy, with prelim pathology showing GIST. She is feeling well overall post surgery. She does have mild surgical related pain. She denies fevers and chills. She has no N/V/D/C. Past medical history: HL Past surgical history: distal gastrectomy w/ Bill Holder II and functional Verito-En-Y reconstruction, Lipoma removal Family history: Denies hematologic and oncologic problems Social history: Denies tobacco, alcohol, and illicit drug use. Allergies: NKA Review of systems: All remaining review of systems including HEENT, cardiovascular, respiratory, gastrointestinal, genitourinary, musculoskeletal, dermatologic, neurologic, and psychiatric are negative unless mentioned in the HPI. Past Patient History - Past Medical History & Family History Past Medical History?: No - Past Social History Smoking Status: Never Smoked Alcohol: None - CARDIAC Hx Hypercholesterolemia: No - PULMONARY Hx Respiratory Disorders: No - NEUROLOGICAL Hx Neurological Disorder: No - HEENT Hx HEENT Problems: No - RENAL Hx Chronic Kidney Disease: No - ENDOCRINE/METABOLIC Hx Endocrine Disorders: No - HEMATOLOGICAL/ONCOLOGICAL Hx Blood Disorders: No - INTEGUMENTARY Hx Dermatological Problems: No - MUSCULOSKELETAL/RHEUMATOLOGICAL Hx Musculoskeletal Disorders: No Hx Falls: No - GASTROINTESTINAL Other/Comment: c/o black stool - GENITOURINARY/GYNECOLOGICAL Hx Genitourinary Disorders: No - PSYCHIATRIC Hx Psychophysiologic Disorder: No Hx Substance Use: No - SURGICAL HISTORY Hx Surgeries: Yes Other/Comment: minor - ANESTHESIA Hx Anesthesia: Yes Hx Anesthesia Reactions: No Hx Malignant Hyperthermia: No Has any member of the family had a problem w/ anesthesia?: No Meds Allergies/Adverse Reactions: Allergies Allergy/AdvReac Type Severity Reaction Status Date / Time No Known Allergies Allergy Verified 03/03/18 09:47 - Medications Medications: Current Medications Acetaminophen (Tylenol 325mg Tab) 650 mg PO Q6 PRN PRN Reason: pain, mod Benzocaine/Menthol (Cepacol Sore Throat) 1 amanda MT Q2H PRN PRN Reason: Sore Throat Last Admin: 03/09/18 22:14 Dose: 1 amanda Enoxaparin Sodium (Lovenox) 40 mg SC DAILY [facility] Last Admin: 03/10/18 09:47 Dose: 40 mg Hydromorphone HCl (Dilaudid) 0.5 mg IVP Q4H PRN PRN Reason: breakthrough pain Last Admin: 03/09/18 16:11 Dose: 0.5 mg Potassium Chloride 20 meq/ (Dextrose/Sodium Chloride) 1,010 mls @ 100 mls/hr IV Q10H [facility] Last Admin: 03/10/18 13:24 Dose: 100 mls/hr Pantoprazole Sodium (Protonix Inj) 40 mg IVP Q12 [facility] Last Admin: 03/10/18 09:47 Dose: 40 mg Saliva Substitute (Mouth Kote 236 Ml) 1 ml MM Q2H PRN PRN Reason: Dry mouth Last Admin: 03/08/18 09:40 Dose: 1 ml Physical Exam - Head Exam Head Exam: ATRAUMATIC - Eye Exam Eye Exam: Normal appearance - ENT Exam ENT Exam: Mucous Membranes Dry - Respiratory Exam Respiratory Exam: NORMAL BREATHING PATTERN - Cardiovascular Exam Cardiovascular Exam: +S1, +S2 - GI/Abdominal Exam GI & Abdominal Exam: Normal Bowel Sounds Results - Vital Signs Recent Vital Signs: Last Vital Signs Temp 98.6 F 03/10/18 15:05 Pulse 83 03/10/18 15:05 Resp 20 03/10/18 15:05 BP 150/75 03/10/18 15:05 Pulse Ox 96 03/10/18 15:05 - Labs Result Diagrams: 03/10/18 06:27 03/10/18 06:27 Labs: Laboratory Results - last 24 hr 03/10/18 03/10/18 06:27 06:27 WBC 6.8 RBC 3.67 L Hgb 10.1 L Hct 29.7 L MCV 80.9 L MCH 27.5 MCHC 33.9 RDW 15.8 H Plt Count 319 MPV 7.4 Neut % (Auto) 69.9 Lymph % (Auto) 17.4 L Bates % (Auto) 10.3 H Eos % (Auto) 1.8 Baso % (Auto) 0.6 Neut # (Auto) 4.8 Lymph # (Auto) 1.2 Bates # (Auto) 0.7 Eos # (Auto) 0.1 Baso # (Auto) 0.0 Sodium 141 Potassium 3.5 L Chloride 105 Carbon Dioxide 29 Anion Gap 11 BUN 4 L Creatinine 0.5 L Est GFR ( Amer) > 60 Est GFR (Non-Af Amer) > 60 Random Glucose 123 H Calcium 8.2 L Phosphorus 2.9 Magnesium 1.9 Total Bilirubin 1.2 AST 25 ALT 39 Alkaline Phosphatase 71 Total Protein 5.3 L Albumin 2.7 L Globulin 2.5 Albumin/Globulin Ratio 1.1 Assessment & Plan (1) Anemia Assessment and Plan: GI bleeding from gastric tumor surgical blood loss will check iron, b12, folate stores transfusion support PRN Status: Acute (2) Subepithelial gastric mass Assessment and Plan: s/p surgery prelim path shows GIST; f/u official path report will add CT chest to complete staging outpatient f/u to determine need for adjuvant Gleevec Thank you for this interesting consult. Status: Acute
[2018-03-10] MEDS ORDERED: Iodixanol 320 MG/ML 100 ML BOTTLE IV ONE (19:24)
--- NOTE | 2018-03-10 21:55 | CP.PCM.PN ---
Objective - Vital Signs/Intake and Output Vital Signs (last 24 hours): Temp Pulse Resp BP Pulse Ox 98.6 F 83 20 150/75 96 03/10/18 15:05 03/10/18 15:05 03/10/18 15:05 03/10/18 15:05 03/10/18 15:05 Intake and Output: 03/10/18 03/11/18 18:59 06:59 Intake Total 2020 Output Total 810 Balance 1210 - Medications Medications: Current Medications Acetaminophen (Tylenol 325mg Tab) 650 mg PO Q6 PRN PRN Reason: pain, mod Benzocaine/Menthol (Cepacol Sore Throat) 1 amanda MT Q2H PRN PRN Reason: Sore Throat Last Admin: 03/09/18 22:14 Dose: 1 amanda Enoxaparin Sodium (Lovenox) 40 mg SC DAILY [facility] Last Admin: 03/10/18 09:47 Dose: 40 mg Hydromorphone HCl (Dilaudid) 0.5 mg IVP Q4H PRN PRN Reason: breakthrough pain Last Admin: 03/09/18 16:11 Dose: 0.5 mg Potassium Chloride 20 meq/ (Dextrose/Sodium Chloride) 1,010 mls @ 100 mls/hr IV Q10H [facility] Last Admin: 03/10/18 21:03 Dose: Not Given Pantoprazole Sodium (Protonix Inj) 40 mg IVP Q12 [facility] Last Admin: 03/10/18 21:02 Dose: 40 mg Saliva Substitute (Mouth Kote 236 Ml) 1 ml MM Q2H PRN PRN Reason: Dry mouth Last Admin: 03/08/18 09:40 Dose: 1 ml - Labs Labs: 03/10/18 06:27 03/10/18 06:27 PT 11.4 SECONDS (9.7-12.2) 03/06/18 06:51 INR 1.0 03/06/18 06:51 APTT 27 SECONDS (21-34) 03/06/18 06:51
[2018-03-10] MEDS ORDERED: Enoxaparin 60 mg Syringe SC ONE (23:00)
[2018-03-10] MEDS ORDERED: Azithromycin 500 MG in Sodium Chloride 0.9% 250 ML IVPB SCH (23:00)
[2018-03-10] MEDS ORDERED: Piperacill/Tazo 3.375gm in Dex 3.375 GM/50 ML BAG IVPB SCH (23:00)
[2018-03-10] MEDS: Azithromycin 500 MG in Sodium Chloride 0.9% 250 ML IVPB SCH (23:41)
--- NOTE | 2018-03-11 00:25 | PN ---
DATE: 03/09/2018 SUBJECTIVE: The patient is feeling better. Postop, she has NG tube with low Gomco suction. She has a drain with some serosanguineous fluid from the abdomen. No fever. No chills. Status post distal partial gastrectomy. PHYSICAL EXAMINATION: VITAL SIGNS: Blood pressure 124/72, pulse 83, respiratory rate 20, temperature 98.5. LUNGS: Bilaterally clear. CARDIOVASCULAR SYSTEM: S1 and S2, regular. ABDOMEN: Postop, bowel sounds are diminished. ASSESSMENT: 1. Status post gastrectomy, continued nothing by mouth , no Gomco suction. 2. Anemia due to gastrointestinal bleed. 3. Dehydration. PLAN: Continue current medication. Monitor the patient. Amandeep Helms MD
[2018-03-11] MEDS: Piperacill/Tazo 3.375gm in Dex 3.375 GM/50 ML BAG IVPB SCH ×4 (00:58→19:39)
--- NOTE | 2018-03-11 02:56 | PN ---
DATE: 03/10/2018 The patient was seen by Oncology. The patient's NG tube is out. She is tolerating diet. She is afebrile. Decreased nausea, vomiting. Potassium is 5.4, 3.5 borderline. Positive cough. No fever, some postop pain. PHYSICAL EXAMINATION: VITAL SIGNS: BP 130/75, pulse 83, respiratory rate 20, temperature 98.6. LUNGS: Clear. CVS: S1, S2 regular. ABDOMEN: Postop, bowel sounds are normoactive and present. MEDICAL OFFICE TECHNICIAN: Awake, alert, oriented x3. ASSESSMENT: 1. Gastrointestinal tumor. Status post Oncology. 2. Anemia of gastrointestinal bleed. 3. Dehydration. PLAN: Continue postop care. Monitor the patient. Amandeep Helms MD
[2018-03-11] MEDS: Potassium Chloride 20 MEQ in Dextrose 5%/0.9% NS 1,000 ML IV SCH ×4 (05:55→21:14)
[2018-03-11 07:28] LABS: BASO # 0.1 K/uL (0.0-0.2); BASO % 1.2 % (0.0-2.0); EOS # 0.2 K/uL (0.0-0.7); EOS % 3.6 % (0.0-4.0); HEMOGLOBIN 10.2 g/dL (11.0-16.0); LYMPH # 1.4 K/uL (1.0-4.3); LYMPH % 22.1 % (20.0-40.0); MEAN CELL VOLUME 81.2 fL (81.0-99.0); MEAN CORPUSCULAR HEMOGLOBIN 27.6 pg (27.0-31.0); MEAN CORPUSCULAR HGB CONC 33.9 g/dL (33.0-37.0); MEAN PLATELET VOLUME 7.3 fL (7.2-11.7); MONO # 0.8 K/uL (0.0-0.8); NEUT # 3.9 K/uL (1.8-7.0); NEUT % 60.1 % (50.0-75.0); RBC 3.69 Mil/uL (3.80-5.20); RED CELL DISTRIBUTION WIDTH 16.4 % (11.5-14.5); WHITE BLOOD COUNT 6.4 K/uL (4.8-10.8)
[2018-03-11 08:23] LABS: FERRITIN 22.1 ng/mL
[2018-03-11 08:35] LABS: ALB/GLOB RATIO 1.1 (1.0-2.1); ALBUMIN 2.7 g/dL (3.5-5.0); ALT/SGPT 61 U/L (9-52); AST/SGOT 49 U/L (14-36); BLOOD UREA NITROGEN 6 mg/dL (7-17); CALCIUM 8.3 mg/dl (8.6-10.4); GFR NON-AFRICAN AMERICAN > 60
--- NOTE | 2018-03-11 08:38 | CT ---
Date of service: 03/10/18 CT chest with IV contrast Indication: Gastric gist staging Technique: Contiguous axial images were obtained through the chest with intravenous contrast enhancement. Sagittal and coronal reconstructions were generated and reviewed. This CT exam was performed using 1 or more of the following dose reduction techniques: Automated exposure control, adjustment of the MAA and/or kV according to patient size, and/or use of iterative reconstruction technique. IV contrast: 100 mL Visipaque IV Radiation dose (DLP): 244.75 MGy-cm. Comparison: Chest x-ray performed 03/05/18 Findings: Visualized portions of the inferior thyroid gland demonstrates 2 small hypodense nodules left lower pole. The mediastinal and hilar vascular structures appear within normal limits. The heart appears within normal limits of size. Incidental note is made of apparent filling defects involving left lower pole branches. Small bilateral pleural effusions and bilateral compressive consolidations. No visible pneumothorax. Limited visualization of the upper abdomen demonstrates 2 hypodense splenic lesions, indeterminate. High-density material within the gallbladder, possibly sludge or vicarious excretion of contrast. Mild degenerative changes. Impression: Small bilateral pleural effusions and bilateral lower lobe consolidations. Incidental note is made of apparent filling defects involving segmental branches of the left lower lobe consistent with pulmonary emboli. CTA of the chest suggested for further evaluation. Hypodense regions involving the spleen, indeterminate. High-density material within the gallbladder, possibly sludge or vicarious excretion of contrast. Visualized portions of the inferior thyroid gland demonstrates 2 small hypodense nodules left lower pole. Thyroid ultrasound may be considered if indicated. Preliminary impression was provided by [facility]. Findings were discussed by Dr. Wong discussed with ERINN De Souza on 03/10/18 at 9:33 p.m.
[2018-03-11 08:52] LABS: FOLATE > 20.0 ng/mL
[2018-03-11] MEDS ORDERED: Enoxaparin 60 mg Syringe SC SCH (10:00)
--- NOTE | 2018-03-11 12:52 | NM ---
Date of service: 03/11/2018 COMPARISON: 03/10/2018 CT thorax TECHNIQUE: 10.5 mCi technetium 99-m Xe-133 Gas. 3.6 mCI technetium 99-m MAA administered intravenously. FINDINGS: VENTILATION COMPONENT: Mildly heterogeneous ventilation with retention of radionuclide on the washout phases. PERFUSION COMPONENT: Heterogeneous perfusion without discrete geographic abnormality. IMPRESSION: Low probability ventilation perfusion scan for pulmonary embolism.
--- NOTE | 2018-03-11 16:00 | VASCLAB ---
Date of service: 03/11/2018 PROCEDURE: Lower Extremity Venous Duplex Exam. HISTORY: DVT PRIORS: None. TECHNIQUE: Bilateral common femoral, femoral, popliteal and posterior tibial, peroneal and great saphenous veins were evaluated. Flow was assessed with color Doppler, compressibility, assessment of phasic flow and augmentation response. Report prepared by NILESH Olguin, RVT FINDINGS: RIGHT: 1. Common Femoral Vein: 1.1. Compressibility - Fully compressible: Thrombus - None : Flow - Phasic: Augmentation -Normal: Reflux - None. 2. Femoral Vein: 2.1. Compressibility - Fully compressible: Thrombus - None : Flow - Phasic: Augmentation -Normal: Reflux - None. 3. Popliteal Vein: 3.1. Compressibility - Fully compressible: Thrombus - None : Flow - Phasic: Augmentation -Normal: Reflux - None. 4. Posterior Tibial Vein: 4.1. Compressibility - Fully compressible: Thrombus - None: Flow - Phasic: Augmentation -Normal: Reflux - None. 5. Peroneal Vein: 5.1. Compressibility - Fully compressible: Thrombus - None: Flow - Phasic: Augmentation -Normal: Reflux - None. 6. Great Saphenous Vein: 6.1. Compressibility - Fully compressible: Thrombus - None: Flow - Phasic: Augmentation - Normal: Reflux - None. LEFT: 1. Common Femoral Vein: 1.1. Compressibility - Fully compressible: Thrombus - None: Flow - Phasic: Augmentation -Normal: Reflux - None. 2. Femoral Vein: 2.1. Compressibility - Fully compressible: Thrombus - None: Flow - Phasic: Augmentation -Normal: Reflux - None. 3. Popliteal Vein: 3.1. Compressibility - Fully compressible: Thrombus - None : Flow - Phasic: Augmentation -Normal: Reflux - None. 4. Posterior Tibial Vein: 4.1. Compressibility - Fully compressible: Thrombus - None: Flow - Phasic: Augmentation -Normal: Reflux - None. 5. Peroneal Vein: 5.1. Compressibility - Fully compressible: Thrombus - None: Flow - Phasic: Augmentation -Normal: Reflux - None. 6. Great Saphenous Vein: 6.1. Compressibility - Fully compressible: Thrombus - None: Flow - Phasic: Augmentation - Normal: Reflux - None. OTHER FINDINGS: Right: None significant. Left: None significant. IMPRESSION: Right: No evidence of deep or superficial vein thrombosis of the right lower extremity. Normal valve function noted of the right side. Left: No evidence of deep or superficial vein thrombosis of the left lower extremity. Normal valve function noted of the left side.
--- NOTE | 2018-03-11 16:50 | CP.PCM.PN ---
Subjective - Date & Time of Evaluation Date of Evaluation: 03/11/18 Time of Evaluation: 10:47 - Subjective Subjective: Gen Sx: Dr Mercer Pt S&E. POD#5 s/p partial gastrectomy. Tolerating liquids. Passing flatus. Pain well controlled. Had CT chest yesterday which demonstrated small subsegmental emboli, no evidence of DVT on duplex. Pt has no respiratory symptoms or tachycardia. Now on therapeutic lovenox. Objective - Vital Signs/Intake and Output Vital Signs (last 24 hours): Temp Pulse Resp BP Pulse Ox 98.6 F 71 20 117/73 100 03/11/18 08:02 03/11/18 11:45 03/11/18 08:02 03/11/18 08:02 03/11/18 08:02 Intake and Output: 03/11/18 03/11/18 06:59 18:59 Intake Total 2024 700 Output Total 50 40 Balance 1975 660 - Medications Medications: Current Medications Acetaminophen (Tylenol 325mg Tab) 650 mg PO Q6 PRN PRN Reason: Pain, Mild (1-3) Benzocaine/Menthol (Cepacol Sore Throat) 1 amanda MT Q2H PRN PRN Reason: Sore Throat Last Admin: 03/09/18 22:14 Dose: 1 amanda Enoxaparin Sodium (Lovenox) 50 mg SC Q12 ANNE Last Admin: 03/11/18 10:56 Dose: 50 mg Hydromorphone HCl (Dilaudid) 0.5 mg IVP Q4H PRN PRN Reason: breakthrough pain Last Admin: 03/09/18 16:11 Dose: 0.5 mg Potassium Chloride 20 meq/ (Dextrose/Sodium Chloride) 1,010 mls @ 100 mls/hr IV Q10H ANNE Last Admin: 03/11/18 12:38 Dose: Not Given Azithromycin 500 mg/ Sodium (Chloride) 250 mls @ 250 mls/hr IVPB Q24H ANNE; Protocol Last Admin: 03/10/18 23:41 Dose: 250 mls/hr Piperacillin Sod/Tazobactam Sod (Zosyn 3.375 Gm Iv Premix) 3.375 gm in 50 mls @ 200 mls/hr IVPB Q6H ANNE; Protocol Last Admin: 03/11/18 12:07 Dose: 200 mls/hr Pantoprazole Sodium (Protonix Inj) 40 mg IVP Q12 ANNE Last Admin: 03/11/18 10:55 Dose: 40 mg Saliva Substitute (Mouth Kote 236 Ml) 1 ml MM Q2H PRN PRN Reason: Dry mouth Last Admin: 03/08/18 09:40 Dose: 1 ml Tramadol HCl (Ultram) 50 mg PO Q6H PRN PRN Reason: Pain, moderate (4-7) - Labs Labs: 03/11/18 07:19 03/11/18 07:19 PT 11.4 SECONDS (9.7-12.2) 03/06/18 06:51 INR 1.0 03/06/18 06:51 APTT 27 SECONDS (21-34) 03/06/18 06:51 - Constitutional Appears: Non-toxic - Respiratory Exam Respiratory Exam: absent: Respiratory Distress - Cardiovascular Exam Cardiovascular Exam: REGULAR RHYTHM. absent: Tachycardia - GI/Abdominal Exam GI & Abdominal Exam: Soft, Tenderness (midline and appropriate - c/d/i). 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
--- NOTE | 2018-03-11 17:10 | CP.PCM.CON ---
History of Present Illness - History of Present Illness History of Present Illness: reason for consultation: pulmonary embolism Patient is a 58 year old female with a PMHx of high cholesterol, herniated discs, and recent GIST tumor. Patient initially presented to the ED due to dark stools, palpitations and dizziness. Throughout admission gastric tumor was found for which surgery was performed. CT chest showed bilateral pleural effusions and bilateral consolidations, with apparent filling defects of left lower lobe consistent with pulmonary embolism. LE Venous Duplex showed no evidence of DVT. Lung perfusion and ventilation scan impression showed low probability ventilation perfusion scan for pulmonary embolism. Patient currently denies SOB, wheezing or cough. PMHx: Hypercholesterolemia, Herniated discs, Gastric tumor Surgerical hx: Gastric surgery on 03/06/2018 Meds: none Allergies: NKDA Fam Hx: Mother - DM type II, HTN; Father - high cholesterol Social Hx: Denies alcohol and tobacco use disorders. 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 Review of Systems - Review of Systems All systems: reviewed and no additional remarkable complaints except (abdominal pain) Past Patient History - Past Medical History & Family History Past Medical History?: No - Past Social History Smoking Status: Never Smoked Alcohol: None - CARDIAC Hx Hypercholesterolemia: No - PULMONARY Hx Respiratory Disorders: No - NEUROLOGICAL Hx Neurological Disorder: No - HEENT Hx HEENT Problems: No - RENAL Hx Chronic Kidney Disease: No - ENDOCRINE/METABOLIC Hx Endocrine Disorders: No - HEMATOLOGICAL/ONCOLOGICAL Hx Blood Disorders: No - INTEGUMENTARY Hx Dermatological Problems: No - MUSCULOSKELETAL/RHEUMATOLOGICAL Hx Musculoskeletal Disorders: No Hx Falls: No - GASTROINTESTINAL Other/Comment: c/o black stool - GENITOURINARY/GYNECOLOGICAL Hx Genitourinary Disorders: No - PSYCHIATRIC Hx Psychophysiologic Disorder: No Hx Substance Use: No - SURGICAL HISTORY Hx Surgeries: Yes Other/Comment: minor - ANESTHESIA Hx Anesthesia: Yes Hx Anesthesia Reactions: No Hx Malignant Hyperthermia: No Has any member of the family had a problem w/ anesthesia?: No Meds Allergies/Adverse Reactions: Allergies Allergy/AdvReac Type Severity Reaction Status Date / Time No Known Allergies Allergy Verified 03/03/18 09:47 - Medications Medications: Current Medications Acetaminophen (Tylenol 325mg Tab) 650 mg PO Q6 PRN PRN Reason: Pain, Mild (1-3) Benzocaine/Menthol (Cepacol Sore Throat) 1 amanda MT Q2H PRN PRN Reason: Sore Throat Last Admin: 03/09/18 22:14 Dose: 1 amanda Enoxaparin Sodium (Lovenox) 50 mg SC Q12 ANNE Last Admin: 03/11/18 10:56 Dose: 50 mg Potassium Chloride 20 meq/ (Dextrose/Sodium Chloride) 1,010 mls @ 100 mls/hr IV Q10H ANNE Last Admin: 03/11/18 12:38 Dose: Not Given Azithromycin 500 mg/ Sodium (Chloride) 250 mls @ 250 mls/hr IVPB Q24H ANNE; Protocol Last Admin: 03/10/18 23:41 Dose: 250 mls/hr Piperacillin Sod/Tazobactam Sod (Zosyn 3.375 Gm Iv Premix) 3.375 gm in 50 mls @ 200 mls/hr IVPB Q6H ANNE; Protocol Last Admin: 03/11/18 12:07 Dose: 200 mls/hr Pantoprazole Sodium (Protonix Inj) 40 mg IVP Q12 ANNE Last Admin: 03/11/18 10:55 Dose: 40 mg Saliva Substitute (Mouth Kote 236 Ml) 1 ml MM Q2H PRN PRN Reason: Dry mouth Last Admin: 03/08/18 09:40 Dose: 1 ml Tramadol HCl (Ultram) 50 mg PO Q6H PRN PRN Reason: Pain, moderate (4-7) Physical Exam - Head Exam Head Exam: ATRAUMATIC, NORMOCEPHALIC - Eye Exam Eye Exam: Normal appearance - ENT Exam ENT Exam: Mucous Membranes Moist - Neck Exam Neck exam: Positive for: Normal Inspection - Respiratory Exam Respiratory Exam: Clear to Auscultation Bilateral - Cardiovascular Exam Cardiovascular Exam: REGULAR RHYTHM - GI/Abdominal Exam GI & Abdominal Exam: Soft Results - Vital Signs Recent Vital Signs: Last Vital Signs Temp 98.5 F 03/11/18 15:00 Pulse 68 03/11/18 15:00 Resp 20 03/11/18 15:00 BP 150/77 03/11/18 15:00 Pulse Ox 98 03/11/18 15:00 - Labs Result Diagrams: 03/11/18 07:19 03/11/18 07:19 Labs: Laboratory Results - last 24 hr 03/11/18 03/11/18 03/11/18 07:19 07:19 07:19 WBC 6.4 RBC 3.69 L Hgb 10.2 L Hct 30.0 L MCV 81.2 MCH 27.6 MCHC 33.9 RDW 16.4 H Plt Count 318 MPV 7.3 Neut % (Auto) 60.1 Lymph % (Auto) 22.1 Sunflower % (Auto) 13.0 H Eos % (Auto) 3.6 Baso % (Auto) 1.2 Neut # (Auto) 3.9 Lymph # (Auto) 1.4 Sunflower # (Auto) 0.8 Eos # (Auto) 0.2 Baso # (Auto) 0.1 Retic Count 1.9 H Sodium 139 Potassium 3.8 Chloride 105 Carbon Dioxide 27 Anion Gap 11 BUN 6 L Creatinine 0.6 L Est GFR ( Amer) > 60 Est GFR (Non-Af Amer) > 60 Random Glucose 115 H Calcium 8.3 L Phosphorus 3.8 Magnesium 1.9 Ferritin 22.1 Total Bilirubin 2.1 H AST 49 H D ALT 61 H D Alkaline Phosphatase 102 Total Protein 5.3 L Albumin 2.7 L Globulin 2.5 Albumin/Globulin Ratio 1.1 Vitamin B12 793 Folate > 20.0 Assessment & Plan (1) Pulmonary embolism Status: Acute Comment: lovenox 1 mg per KG every 12 hours. Switch to eliquis tomorrow
[2018-03-11] MEDS ORDERED: HYDROmorphone 0.5 mg/0.5 ml ISec IVP PRN (18:16)
--- NOTE | 2018-03-11 22:21 | CP.PCM.PN ---
Objective - Vital Signs/Intake and Output Vital Signs (last 24 hours): Temp Pulse Resp BP Pulse Ox 98.5 F 68 20 150/77 98 03/11/18 15:00 03/11/18 15:00 03/11/18 15:00 03/11/18 15:00 03/11/18 15:00 Intake and Output: 03/11/18 03/12/18 18:59 06:59 Intake Total 700 Output Total 40 Balance 660 - Medications Medications: Current Medications Acetaminophen (Tylenol 325mg Tab) 650 mg PO Q6 PRN PRN Reason: Pain, Mild (1-3) Benzocaine/Menthol (Cepacol Sore Throat) 1 amanda MT Q2H PRN PRN Reason: Sore Throat Last Admin: 03/09/18 22:14 Dose: 1 amanda Enoxaparin Sodium (Lovenox) 40 mg SC DAILY ANNE Hydromorphone HCl (Dilaudid) 0.5 mg IVP Q6H PRN PRN Reason: Pain, severe (8-10) Potassium Chloride 20 meq/ (Dextrose/Sodium Chloride) 1,010 mls @ 100 mls/hr IV Q10H ANNE Last Admin: 03/11/18 21:14 Dose: Not Given Azithromycin 500 mg/ Sodium (Chloride) 250 mls @ 250 mls/hr IVPB Q24H ANNE; Protocol Last Admin: 03/10/18 23:41 Dose: 250 mls/hr Piperacillin Sod/Tazobactam Sod (Zosyn 3.375 Gm Iv Premix) 3.375 gm in 50 mls @ 200 mls/hr IVPB Q6H ANNE; Protocol Last Admin: 03/11/18 19:39 Dose: 200 mls/hr Pantoprazole Sodium (Protonix Inj) 40 mg IVP Q12 ANNE Last Admin: 03/11/18 21:20 Dose: 40 mg Saliva Substitute (Mouth Kote 236 Ml) 1 ml MM Q2H PRN PRN Reason: Dry mouth Last Admin: 03/08/18 09:40 Dose: 1 ml Tramadol HCl (Ultram) 50 mg PO Q6H PRN PRN Reason: Pain, moderate (4-7) - Labs Labs: 03/11/18 07:19 03/11/18 07:19 PT 11.4 SECONDS (9.7-12.2) 03/06/18 06:51 INR 1.0 03/06/18 06:51 APTT 27 SECONDS (21-34) 03/06/18 06:51
[2018-03-11] MEDS: Azithromycin 500 MG in Sodium Chloride 0.9% 250 ML IVPB SCH (22:57)
--- NOTE | 2018-03-12 00:03 | CP.PCM.PN ---
Subjective - Date & Time of Evaluation Date of Evaluation: 03/11/18 Time of Evaluation: 19:00 - Subjective Subjective: No complaints. Objective - Vital Signs/Intake and Output Vital Signs (last 24 hours): Temp Pulse Resp BP Pulse Ox 98.5 F 68 20 150/77 98 03/11/18 15:00 03/11/18 15:00 03/11/18 15:00 03/11/18 15:00 03/11/18 15:00 Intake and Output: 03/11/18 03/12/18 18:59 06:59 Intake Total 700 Output Total 40 Balance 660 - Medications Medications: Current Medications Acetaminophen (Tylenol 325mg Tab) 650 mg PO Q6 PRN PRN Reason: Pain, Mild (1-3) Benzocaine/Menthol (Cepacol Sore Throat) 1 amanda MT Q2H PRN PRN Reason: Sore Throat Last Admin: 03/09/18 22:14 Dose: 1 amanda Enoxaparin Sodium (Lovenox) 40 mg SC DAILY ANNE Hydromorphone HCl (Dilaudid) 0.5 mg IVP Q6H PRN PRN Reason: Pain, severe (8-10) Potassium Chloride 20 meq/ (Dextrose/Sodium Chloride) 1,010 mls @ 100 mls/hr IV Q10H ANNE Last Admin: 03/11/18 21:14 Dose: Not Given Azithromycin 500 mg/ Sodium (Chloride) 250 mls @ 250 mls/hr IVPB Q24H ANNE; Protocol Last Admin: 03/11/18 22:57 Dose: 250 mls/hr Piperacillin Sod/Tazobactam Sod (Zosyn 3.375 Gm Iv Premix) 3.375 gm in 50 mls @ 200 mls/hr IVPB Q6H ANNE; Protocol Last Admin: 03/11/18 19:39 Dose: 200 mls/hr Pantoprazole Sodium (Protonix Inj) 40 mg IVP Q12 ANNE Last Admin: 03/11/18 21:20 Dose: 40 mg Saliva Substitute (Mouth Kote 236 Ml) 1 ml MM Q2H PRN PRN Reason: Dry mouth Last Admin: 03/08/18 09:40 Dose: 1 ml Tramadol HCl (Ultram) 50 mg PO Q6H PRN PRN Reason: Pain, moderate (4-7) - Labs Labs: 03/11/18 07:19 03/11/18 07:19 PT 11.4 SECONDS (9.7-12.2) 03/06/18 06:51 INR 1.0 03/06/18 06:51 APTT 27 SECONDS (21-34) 03/06/18 06:51 - Head Exam Head Exam: ATRAUMATIC - Eye Exam Eye Exam: Normal appearance - ENT Exam ENT Exam: Mucous Membranes Dry - Respiratory Exam Respiratory Exam: Decreased Breath Sounds - Cardiovascular Exam Cardiovascular Exam: +S1, +S2 - GI/Abdominal Exam GI & Abdominal Exam: Normal Bowel Sounds Assessment and Plan (1) Pulmonary embolism Assessment & Plan: therapeutic anticoagulation likely provoked from malignancy Status: Acute (2) Anemia Assessment & Plan: GI bleeding from gastric tumor surgical blood loss f/u iron, b12, folate stores transfusion support PRN Status: Acute (3) Subepithelial gastric mass Assessment & Plan: s/p surgery prelim path shows GIST; f/u official path report will add CT chest to complete staging outpatient f/u to determine need for adjuvant Gleevec Status: Acute
[2018-03-12] MEDS: Piperacill/Tazo 3.375gm in Dex 3.375 GM/50 ML BAG IVPB SCH (00:48)
--- NOTE | 2018-03-12 04:07 | PN ---
DATE: 03/11/2018 SUBJECTIVE: The patient is feeling better. Her V/Q scan and venous Doppler is negative. I cut down her Lovenox. The patient has no cough, no shortness of breath, no fever, no leukocytosis. The patient is on antibiotics, seen by Pulmonary. PHYSICAL EXAMINATION: VITAL SIGNS: BP 120/70, pulse 88, respiratory rate 20 and temperature 99. LUNGS: Bilaterally clear. CARDIOVASCULAR SYSTEM: S1 and S2, regular. ABDOMEN: Soft. ASSESSMENT: 1. Rule out pneumonia, could be post operative atelectasis. 2. Stomach cancer. 3. Dehydration. 4. Anemia, due to gastrointestinal bleed. PLAN: Continue current medications. Antibiotics nebulizer. Monitor the patient. Amandeep Helms MD
[2018-03-12] MEDS: Potassium Chloride 20 MEQ in Dextrose 5%/0.9% NS 1,000 ML IV SCH ×2 (08:07→11:15)
[2018-03-12 08:32] LABS: BASO # 0.1 K/uL (0.0-0.2); BASO % 1.3 % (0.0-2.0); EOS # 0.4 K/uL (0.0-0.7); EOS % 6.3 % (0.0-4.0); HEMOGLOBIN 10.6 g/dL (11.0-16.0); LYMPH # 1.4 K/uL (1.0-4.3); LYMPH % 21.7 % (20.0-40.0); MEAN CELL VOLUME 80.6 fL (81.0-99.0); MEAN CORPUSCULAR HEMOGLOBIN 27.2 pg (27.0-31.0); MEAN CORPUSCULAR HGB CONC 33.7 g/dL (33.0-37.0); MEAN PLATELET VOLUME 7.7 fL (7.2-11.7); MONO # 0.7 K/uL (0.0-0.8); MONO % 11.9 % (0.0-10.0); NEUT # 3.7 K/uL (1.8-7.0); NEUT % 58.8 % (50.0-75.0); NRBC % 0.1 % (0.0-2.0); RBC 3.91 Mil/uL (3.80-5.20); RED CELL DISTRIBUTION WIDTH 16.5 % (11.5-14.5); WHITE BLOOD COUNT 6.2 K/uL (4.8-10.8)
[2018-03-12 09:17] LABS: ALB/GLOB RATIO 1.1 (1.0-2.1); ALT/SGPT 92 U/L (9-52); AST/SGOT 64 U/L (14-36); BLOOD UREA NITROGEN 3 mg/dL (7-17); CALCIUM 8.4 mg/dl (8.6-10.4); GFR NON-AFRICAN AMERICAN > 60
--- NOTE | 2018-03-12 10:30 | CP.PCM.PN ---
Subjective - Date & Time of Evaluation Date of Evaluation: 03/12/18 Time of Evaluation: 07:14 - Subjective Subjective: General Sx: Dr Mercer Pt S&E. POD#6 s/p gastectomy. Tolerating FLD. Having BMs. OOB and ambulating. Pain well controlled. On therapeutic lvx for PE. Will be transitioned to Eliquis Objective - Vital Signs/Intake and Output Vital Signs (last 24 hours): Temp Pulse Resp BP Pulse Ox 98.3 F 141 H 20 118/69 97 03/12/18 08:26 03/12/18 08:26 03/12/18 08:26 03/12/18 08:26 03/12/18 08:26 Intake and Output: 03/12/18 03/12/18 06:59 18:59 Intake Total 2050 Output Total 880 Balance 1170 - Medications Medications: Current Medications Acetaminophen (Tylenol 325mg Tab) 650 mg PO Q6 PRN PRN Reason: Pain, Mild (1-3) Benzocaine/Menthol (Cepacol Sore Throat) 1 amanda MT Q2H PRN PRN Reason: Sore Throat Last Admin: 03/09/18 22:14 Dose: 1 amanda Enoxaparin Sodium (Lovenox) 40 mg SC DAILY ANNE Hydromorphone HCl (Dilaudid) 0.5 mg IVP Q6H PRN PRN Reason: Pain, severe (8-10) Azithromycin 500 mg/ Sodium (Chloride) 250 mls @ 250 mls/hr IVPB Q24H ANNE; Protocol Last Admin: 03/11/18 22:57 Dose: 250 mls/hr Piperacillin Sod/Tazobactam (Sod 3.375 gm/ Sodium Chloride) 100 mls @ 200 mls/hr IVPB Q6H ANNE; Protocol Pantoprazole Sodium (Protonix Inj) 40 mg IVP Q12 ANNE Last Admin: 03/11/18 21:20 Dose: 40 mg Saliva Substitute (Mouth Kote 236 Ml) 1 ml MM Q2H PRN PRN Reason: Dry mouth Last Admin: 03/08/18 09:40 Dose: 1 ml Tramadol HCl (Ultram) 50 mg PO Q6H PRN PRN Reason: Pain, moderate (4-7) - Labs Labs: 03/12/18 08:20 03/12/18 08:20 PT 11.4 SECONDS (9.7-12.2) 03/06/18 06:51 INR 1.0 03/06/18 06:51 APTT 27 SECONDS (21-34) 03/06/18 06:51 - Constitutional Appears: Non-toxic, No Acute Distress - Eye Exam Eye Exam: Normal appearance - ENT Exam ENT Exam: Mucous Membranes Moist - Respiratory Exam Respiratory Exam: absent: Accessory Muscle Use, Respiratory Distress - Cardiovascular Exam Cardiovascular Exam: REGULAR RHYTHM. absent: Tachycardia - GI/Abdominal Exam GI & Abdominal Exam: Soft. absent: Distended, Guarding, Rigid, Tenderness Additional comments: midline incision c/d/i - Neurological Exam Neurological Exam: Alert, Awake, Oriented x3 - Psychiatric Exam Psychiatric exam: Normal Affect, Normal Mood - Skin Skin Exam: Normal Color, Warm Assessment and Plan - Assessment and Plan (Free Text) Assessment: 58F POD#6 s/p partial gastrectomy Plan: diet adv to soft will d/c drain PO meds d/c planning will d/w Dr Sylvie Martinez, PGY4
[2018-03-12] MEDS: Piperacillin/Tazobact 3.375 GM in Sodium Chloride 0.9% 100 ML IVPB SCH ×2 (11:07→17:49)
[2018-03-12] MEDS: Enoxaparin 40 mg Syringe SC SCH (11:07)
--- NOTE | 2018-03-12 14:26 | CP.PCM.PN ---
Subjective - Date & Time of Evaluation Date of Evaluation: 03/12/18 Time of Evaluation: 13:45 - Subjective Subjective: the patient seen and examined Denies shortness of breath Denies chest pain Patient ambulatory On anticoagulation Objective - Vital Signs/Intake and Output Vital Signs (last 24 hours): Temp Pulse Resp BP Pulse Ox 98.3 F 74 20 118/69 97 03/12/18 08:26 03/12/18 12:46 03/12/18 08:26 03/12/18 08:26 03/12/18 08:26 Intake and Output: 03/12/18 03/12/18 06:59 18:59 Intake Total 2050 Output Total 880 Balance 1170 - Medications Medications: Current Medications Acetaminophen (Tylenol 325mg Tab) 650 mg PO Q6 PRN PRN Reason: Pain, Mild (1-3) Benzocaine/Menthol (Cepacol Sore Throat) 1 amanda MT Q2H PRN PRN Reason: Sore Throat Last Admin: 03/09/18 22:14 Dose: 1 amanda Enoxaparin Sodium (Lovenox) 40 mg SC DAILY ANNE Last Admin: 03/12/18 11:07 Dose: 40 mg Azithromycin 500 mg/ Sodium (Chloride) 250 mls @ 250 mls/hr IVPB Q24H ANNE; Protocol Last Admin: 03/11/18 22:57 Dose: 250 mls/hr Piperacillin Sod/Tazobactam (Sod 3.375 gm/ Sodium Chloride) 100 mls @ 200 mls/hr IVPB Q6H ANNE; Protocol Last Admin: 03/12/18 11:07 Dose: 200 mls/hr Pantoprazole Sodium (Protonix Inj) 40 mg IVP Q12 ANNE Last Admin: 03/12/18 11:07 Dose: 40 mg Saliva Substitute (Mouth Kote 236 Ml) 1 ml MM Q2H PRN PRN Reason: Dry mouth Last Admin: 03/08/18 09:40 Dose: 1 ml Tramadol HCl (Ultram) 50 mg PO Q6H PRN PRN Reason: Pain, moderate (4-7) - Labs Labs: 03/12/18 08:20 03/12/18 08:20 PT 11.4 SECONDS (9.7-12.2) 03/06/18 06:51 INR 1.0 03/06/18 06:51 APTT 27 SECONDS (21-34) 03/06/18 06:51 - Head Exam Head Exam: ATRAUMATIC, NORMOCEPHALIC - ENT Exam ENT Exam: Mucous Membranes Moist - Neck Exam Neck Exam: Normal Inspection - Respiratory Exam Respiratory Exam: Clear to Ausculation Bilateral - GI/Abdominal Exam GI & Abdominal Exam: Soft Assessment and Plan (1) Pulmonary embolism Assessment & Plan: Patient is on Lovenox Switch to eliquis Status: Acute
--- NOTE | 2018-03-12 18:00 | CP.PCM.PN ---
Subjective - Date & Time of Evaluation Date of Evaluation: 03/12/18 Time of Evaluation: 16:00 - Subjective Subjective: Feeling better Objective - Vital Signs/Intake and Output Vital Signs (last 24 hours): Temp Pulse Resp BP Pulse Ox 98.5 F 65 20 111/68 99 03/12/18 15:00 03/12/18 16:00 03/12/18 15:00 03/12/18 15:00 03/12/18 15:00 Intake and Output: 03/12/18 03/12/18 06:59 18:59 Intake Total 2050 1000 Output Total 880 600 Balance 1170 400 - Medications Medications: Current Medications Acetaminophen (Tylenol 325mg Tab) 650 mg PO Q6 PRN PRN Reason: Pain, Mild (1-3) Benzocaine/Menthol (Cepacol Sore Throat) 1 amanda MT Q2H PRN PRN Reason: Sore Throat Last Admin: 03/09/18 22:14 Dose: 1 amanda Enoxaparin Sodium (Lovenox) 40 mg SC DAILY [facility] Last Admin: 03/12/18 11:07 Dose: 40 mg Azithromycin 500 mg/ Sodium (Chloride) 250 mls @ 250 mls/hr IVPB Q24H [facility]; Protocol Last Admin: 03/11/18 22:57 Dose: 250 mls/hr Piperacillin Sod/Tazobactam (Sod 3.375 gm/ Sodium Chloride) 100 mls @ 200 mls/hr IVPB Q6H [facility]; Protocol Last Admin: 03/12/18 17:49 Dose: 200 mls/hr Pantoprazole Sodium (Protonix Inj) 40 mg IVP Q12 [facility] Last Admin: 03/12/18 11:07 Dose: 40 mg Saliva Substitute (Mouth Kote 236 Ml) 1 ml MM Q2H PRN PRN Reason: Dry mouth Last Admin: 03/08/18 09:40 Dose: 1 ml Tramadol HCl (Ultram) 50 mg PO Q6H PRN PRN Reason: Pain, moderate (4-7) - Labs Labs: 03/12/18 08:20 03/12/18 08:20 PT 11.4 SECONDS (9.7-12.2) 03/06/18 06:51 INR 1.0 03/06/18 06:51 APTT 27 SECONDS (21-34) 03/06/18 06:51 - Head Exam Head Exam: ATRAUMATIC - Eye Exam Eye Exam: Normal appearance - ENT Exam ENT Exam: Mucous Membranes Dry - Respiratory Exam Respiratory Exam: NORMAL BREATHING PATTERN - Cardiovascular Exam Cardiovascular Exam: +S1, +S2 - GI/Abdominal Exam GI & Abdominal Exam: Normal Bowel Sounds - Rectal Exam Rectal Exam: NORMAL INSPECTION Assessment and Plan (1) GIST, 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
--- NOTE | 2018-03-12 21:59 | CP.PCM.PN ---
Subjective - Subjective Subjective: dictated Objective - Vital Signs/Intake and Output Vital Signs (last 24 hours): Temp Pulse Resp BP Pulse Ox 98.5 F 65 20 111/68 99 03/12/18 15:00 03/12/18 16:00 03/12/18 15:00 03/12/18 15:00 03/12/18 15:00 Intake and Output: 03/12/18 03/13/18 18:59 06:59 Intake Total 1000 Output Total 600 Balance 400 - Medications Medications: Current Medications Acetaminophen (Tylenol 325mg Tab) 650 mg PO Q6 PRN PRN Reason: Pain, Mild (1-3) Benzocaine/Menthol (Cepacol Sore Throat) 1 amanda MT Q2H PRN PRN Reason: Sore Throat Last Admin: 03/09/18 22:14 Dose: 1 amanda Enoxaparin Sodium (Lovenox) 40 mg SC DAILY [facility] Last Admin: 03/12/18 11:07 Dose: 40 mg Azithromycin 500 mg/ Sodium (Chloride) 250 mls @ 250 mls/hr IVPB Q24H [facility]; Protocol Last Admin: 03/11/18 22:57 Dose: 250 mls/hr Piperacillin Sod/Tazobactam (Sod 3.375 gm/ Sodium Chloride) 100 mls @ 200 mls/hr IVPB Q6H [facility]; Protocol Last Admin: 03/12/18 17:49 Dose: 200 mls/hr Pantoprazole Sodium (Protonix Inj) 40 mg IVP Q12 [facility] Last Admin: 03/12/18 11:07 Dose: 40 mg Saliva Substitute (Mouth Kote 236 Ml) 1 ml MM Q2H PRN PRN Reason: Dry mouth Last Admin: 03/08/18 09:40 Dose: 1 ml Tramadol HCl (Ultram) 50 mg PO Q6H PRN PRN Reason: Pain, moderate (4-7) - Labs Labs: 03/12/18 08:20 03/12/18 08:20 PT 11.4 SECONDS (9.7-12.2) 03/06/18 06:51 INR 1.0 03/06/18 06:51 APTT 27 SECONDS (21-34) 03/06/18 06:51
[2018-03-12] MEDS: Azithromycin 500 MG in Sodium Chloride 0.9% 250 ML IVPB SCH (23:02)
[2018-03-13] MEDS: Piperacillin/Tazobact 3.375 GM in Sodium Chloride 0.9% 100 ML IVPB SCH ×4 (00:45→17:37)
[2018-03-13] MEDS: Potassium Chloride 20 MEQ in Dextrose 5%/0.9% NS 1,000 ML IV SCH (02:20)
--- NOTE | 2018-03-13 07:01 | PN ---
DATE: 03/12/2018 SUBJECTIVE: The patient is afebrile. She has mild cough. No fever. No nausea or vomiting. PHYSICAL EXAMINATION: VITAL SIGNS: Blood pressure 111/68, pulse 65, respiratory rate 20, and temperature 98.5. LUNGS: Bilateral scattered rales. CARDIOVASCULAR SYSTEM: S1 and S2, regular. ABDOMEN: Soft. ASSESSMENT: 1. Pneumonia. 2. Gastric tumor, status post resection. 3. Anemia of gastrointestinal bleed. PLAN: Continue antibiotics, nebulizer treatment. Monitor the patient. Amandeep Helms MD
--- NOTE | 2018-03-13 08:31 | CP.PCM.PN ---
Subjective - Date & Time of Evaluation Date of Evaluation: 03/13/18 Time of Evaluation: 06:40 - Subjective Subjective: General Surgery Pt seen and examined. Tolerating soft diet. Having BMs. OOB and ambulating. Pain well controlled. On therapeutic lvx for PE. Objective - Vital Signs/Intake and Output Vital Signs (last 24 hours): Temp Pulse Resp BP Pulse Ox 98.2 F 65 20 123/73 99 03/12/18 23:40 03/13/18 04:19 03/12/18 23:40 03/12/18 23:40 03/12/18 23:40 Intake and Output: 03/13/18 03/13/18 06:59 18:59 Intake Total 920 Balance 920 - Medications Medications: Current Medications Acetaminophen (Tylenol 325mg Tab) 650 mg PO Q6 PRN PRN Reason: Pain, Mild (1-3) Benzocaine/Menthol (Cepacol Sore Throat) 1 amanda MT Q2H PRN PRN Reason: Sore Throat Last Admin: 03/09/18 22:14 Dose: 1 amanda Enoxaparin Sodium (Lovenox) 40 mg SC DAILY [facility]NE Last Admin: 03/12/18 11:07 Dose: 40 mg Azithromycin 500 mg/ Sodium (Chloride) 250 mls @ 250 mls/hr IVPB Q24H [facility]; Protocol Last Admin: 03/12/18 23:02 Dose: 250 mls/hr Piperacillin Sod/Tazobactam (Sod 3.375 gm/ Sodium Chloride) 100 mls @ 200 mls/hr IVPB Q6H [facility]; Protocol Last Admin: 03/13/18 06:16 Dose: 200 mls/hr Pantoprazole Sodium (Protonix Inj) 40 mg IVP Q12 [facility] Last Admin: 03/12/18 23:02 Dose: 40 mg Saliva Substitute (Mouth Kote 236 Ml) 1 ml MM Q2H PRN PRN Reason: Dry mouth Last Admin: 03/08/18 09:40 Dose: 1 ml Tramadol HCl (Ultram) 50 mg PO Q6H PRN PRN Reason: Pain, moderate (4-7) - Labs Labs: 03/12/18 08:20 03/12/18 08:20 PT 11.4 SECONDS (9.7-12.2) 03/06/18 06:51 INR 1.0 03/06/18 06:51 APTT 27 SECONDS (21-34) 03/06/18 06:51 - Constitutional Appears: Non-toxic, No Acute Distress - Head Exam Head Exam: ATRAUMATIC, NORMOCEPHALIC - Eye Exam Eye Exam: EOMI. absent: Scleral icterus - Respiratory Exam Respiratory Exam: NORMAL BREATHING PATTERN. absent: Respiratory Distress - Cardiovascular Exam Cardiovascular Exam: RRR, +S1, +S2 - GI/Abdominal Exam GI & Abdominal Exam: Soft. absent: Distended, Firm, Guarding, Rigid, Tendern ess, Rebound Additional comments: Incision C/D/I Dressing C/D/I - Neurological Exam Neurological Exam: Alert, Awake, Oriented x3 - Skin Skin Exam: Dry, Warm Assessment and Plan - Assessment and Plan (Free Text) Assessment: 58F POD#7 s/p partial gastrectomy Plan: Convert anticoagulation to eliquis Advance to regular diet Ok for DC from a surgical standpoint Will D/W Dr. Sylvie Canales PGY4
[2018-03-13 08:46] LABS: BASO # 0.1 K/uL (0.0-0.2); BASO % 1.1 % (0.0-2.0); EOS # 0.4 K/uL (0.0-0.7); EOS % 5.5 % (0.0-4.0); HEMOGLOBIN 11.9 g/dL (11.0-16.0); LYMPH # 1.9 K/uL (1.0-4.3); LYMPH % 27.8 % (20.0-40.0); MEAN CELL VOLUME 81.6 fL (81.0-99.0); MEAN CORPUSCULAR HEMOGLOBIN 27.4 pg (27.0-31.0); MEAN CORPUSCULAR HGB CONC 33.6 g/dL (33.0-37.0); MEAN PLATELET VOLUME 7.8 fL (7.2-11.7); MONO # 0.7 K/uL (0.0-0.8); MONO % 10.5 % (0.0-10.0); NEUT # 3.7 K/uL (1.8-7.0); NEUT % 55.1 % (50.0-75.0); RBC 4.33 Mil/uL (3.80-5.20); RED CELL DISTRIBUTION WIDTH 16.8 % (11.5-14.5); WHITE BLOOD COUNT 6.8 K/uL (4.8-10.8)
[2018-03-13 09:17] LABS: BLOOD UREA NITROGEN 4 mg/dL (7-17); CALCIUM 8.8 mg/dl (8.6-10.4); GFR NON-AFRICAN AMERICAN > 60
[2018-03-13] MEDS: Enoxaparin 40 mg Syringe SC SCH (10:52)
--- NOTE | 2018-03-13 12:53 | CP.PCM.PN ---
Subjective - Date & Time of Evaluation Date of Evaluation: 03/13/18 Time of Evaluation: 12:30 - Subjective Subjective: Feeling better. Objective - Vital Signs/Intake and Output Vital Signs (last 24 hours): Temp Pulse Resp BP Pulse Ox 97.8 F 62 18 121/72 100 03/13/18 07:00 03/13/18 08:02 03/13/18 07:00 03/13/18 07:00 03/13/18 07:00 Intake and Output: 03/13/18 03/13/18 06:59 18:59 Intake Total 920 Balance 920 - Medications Medications: Current Medications Acetaminophen (Tylenol 325mg Tab) 650 mg PO Q6 PRN PRN Reason: Pain, Mild (1-3) Benzocaine/Menthol (Cepacol Sore Throat) 1 amanda MT Q2H PRN PRN Reason: Sore Throat Last Admin: 03/09/18 22:14 Dose: 1 amanda Enoxaparin Sodium (Lovenox) 40 mg SC DAILY ANNE Last Admin: 03/13/18 10:52 Dose: 40 mg Azithromycin 500 mg/ Sodium (Chloride) 250 mls @ 250 mls/hr IVPB Q24H [facility]; Protocol Last Admin: 03/12/18 23:02 Dose: 250 mls/hr Piperacillin Sod/Tazobactam (Sod 3.375 gm/ Sodium Chloride) 100 mls @ 200 mls/hr IVPB Q6H [facility]; Protocol Last Admin: 03/13/18 11:01 Dose: 200 mls/hr Pantoprazole Sodium (Protonix Inj) 40 mg IVP Q12 ANNE Last Admin: 03/13/18 10:53 Dose: 40 mg Saliva Substitute (Mouth Kote 236 Ml) 1 ml MM Q2H PRN PRN Reason: Dry mouth Last Admin: 03/08/18 09:40 Dose: 1 ml Tramadol HCl (Ultram) 50 mg PO Q6H PRN PRN Reason: Pain, moderate (4-7) - Labs Labs: 03/13/18 08:33 03/13/18 08:33 PT 11.4 SECONDS (9.7-12.2) 03/06/18 06:51 INR 1.0 03/06/18 06:51 APTT 27 SECONDS (21-34) 03/06/18 06:51 - Head Exam Head Exam: ATRAUMATIC - Eye Exam Eye Exam: Normal appearance - ENT Exam ENT Exam: Mucous Membranes Dry - Respiratory Exam Respiratory Exam: NORMAL BREATHING PATTERN - Cardiovascular Exam Cardiovascular Exam: +S1, +S2 - GI/Abdominal Exam GI & Abdominal Exam: Normal Bowel Sounds Assessment and Plan (1) GIST, 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
--- NOTE | 2018-03-13 13:30 | CP.PCM.PN ---
Subjective - Date & Time of Evaluation Date of Evaluation: 03/13/18 Time of Evaluation: 13:30 - Subjective Subjective: Pulmonary Follow up, Covering Dr Handy The patient was Seen/interviewed and examined by me at the bedside, Medical records reviewed and Management issues were discussed and formulated with the house staff. Events reviewed Patient afebrile and in no acute distress. Patient is ambulating with PTs help and was OOB in chair in the morning. Denies SOB, cough, chest pain. Currently on Lovenox, denies bleeding or bruising. States she is feeling well overall with pain at incision site. Objective - Vital Signs/Intake and Output Vital Signs (last 24 hours): Temp Pulse Resp BP Pulse Ox 97.8 F 62 18 121/72 100 03/13/18 07:00 03/13/18 08:02 03/13/18 07:00 03/13/18 07:00 03/13/18 07:00 Intake and Output: 03/13/18 03/13/18 06:59 18:59 Intake Total 920 Balance 920 - Medications Medications: Current Medications Acetaminophen (Tylenol 325mg Tab) 650 mg PO Q6 PRN PRN Reason: Pain, Mild (1-3) Benzocaine/Menthol (Cepacol Sore Throat) 1 amanda MT Q2H PRN PRN Reason: Sore Throat Last Admin: 03/09/18 22:14 Dose: 1 amanda Enoxaparin Sodium (Lovenox) 40 mg SC DAILY ANNE Last Admin: 03/13/18 10:52 Dose: 40 mg Azithromycin 500 mg/ Sodium (Chloride) 250 mls @ 250 mls/hr IVPB Q24H [facility]; Protocol Last Admin: 03/12/18 23:02 Dose: 250 mls/hr Piperacillin Sod/Tazobactam (Sod 3.375 gm/ Sodium Chloride) 100 mls @ 200 mls/hr IVPB Q6H [facility]; Protocol Last Admin: 03/13/18 11:01 Dose: 200 mls/hr Pantoprazole Sodium (Protonix Inj) 40 mg IVP Q12 ANNE Last Admin: 03/13/18 10:53 Dose: 40 mg Saliva Substitute (Mouth Kote 236 Ml) 1 ml MM Q2H PRN PRN Reason: Dry mouth Last Admin: 03/08/18 09:40 Dose: 1 ml Tramadol HCl (Ultram) 50 mg PO Q6H PRN PRN Reason: Pain, moderate (4-7) - Labs Labs: 03/13/18 08:33 03/13/18 08:33 PT 11.4 SECONDS (9.7-12.2) 03/06/18 06:51 INR 1.0 03/06/18 06:51 APTT 27 SECONDS (21-34) 03/06/18 06:51 - Constitutional Appears: Well, Non-toxic, No Acute Distress - Head Exam Head Exam: ATRAUMATIC - Eye Exam Eye Exam: EOMI - ENT Exam ENT Exam: Mucous Membranes Moist - Neck Exam Neck Exam: Full ROM - Respiratory Exam Respiratory Exam: Clear to Ausculation Bilateral, NORMAL BREATHING PATTERN - Cardiovascular Exam Cardiovascular Exam: REGULAR RHYTHM, +S1, +S2 - GI/Abdominal Exam GI & Abdominal Exam: Soft, Normal Bowel Sounds Additional comments: Mid abdominal incision with eron in place. Incision clean,dry and intact. Assessment and Plan (1) Pulmonary embolism Assessment & Plan: No respiratory symptoms, PE likely from immobilization. - Continue anticoagulation - Incentive spirometry at bedside. Pt was instructed on proper use and frequency. - Patient is encouraged to get OOB if pain allows. Status: Acute
[2018-03-13 15:46] VITALS: RESP 20
--- NOTE | 2018-03-13 23:34 | CP.PCM.PN ---
Objective - Vital Signs/Intake and Output Vital Signs (last 24 hours): Temp Pulse Resp BP Pulse Ox 97.3 F L 71 20 114/67 100 03/13/18 15:00 03/13/18 15:00 03/13/18 15:00 03/13/18 15:00 03/13/18 15:00 - Medications Medications: Current Medications Acetaminophen (Tylenol 325mg Tab) 650 mg PO Q6 PRN PRN Reason: Pain, Mild (1-3) Amoxicillin (Amoxil 500 Mg Cap) 500 mg PO Q8H [facility]; Protocol Last Admin: 03/13/18 21:19 Dose: 500 mg Benzocaine/Menthol (Cepacol Sore Throat) 1 amanda MT Q2H PRN PRN Reason: Sore Throat Last Admin: 03/09/18 22:14 Dose: 1 amanda Famotidine (Pepcid) 20 mg PO BID [facility] Last Admin: 03/13/18 21:20 Dose: 20 mg Rivaroxaban (Xarelto) 15 mg PO BID [facility] Last Admin: 03/13/18 21:20 Dose: 15 mg Saliva Substitute (Mouth Kote 236 Ml) 1 ml MM Q2H PRN PRN Reason: Dry mouth Last Admin: 03/08/18 09:40 Dose: 1 ml Tramadol HCl (Ultram) 50 mg PO Q6H PRN PRN Reason: Pain, moderate (4-7) - Labs Labs: 03/13/18 08:33 03/13/18 08:33 PT 11.4 SECONDS (9.7-12.2) 03/06/18 06:51 INR 1.0 03/06/18 06:51 APTT 27 SECONDS (21-34) 03/06/18 06:51
[2018-03-14 08:30] LABS: ALB/GLOB RATIO 1.2 (1.0-2.1); ALBUMIN 3.4 g/dL (3.5-5.0); AST/SGOT 99 U/L (14-36); BILIRUBIN,DIRECT 0.5 mg/dL (0.0-0.4); BLOOD UREA NITROGEN 5 mg/dL (7-17); CALCIUM 8.8 mg/dl (8.6-10.4); GFR NON-AFRICAN AMERICAN > 60
[2018-03-14 08:31] LABS: ALT/SGPT 138 U/L (9-52)
[2018-03-14 08:36] VITALS: BP 113/67; PULSE 61; TEMP 98.3; O2SAT 96
[2018-03-14 08:36] LABS: HEMOGLOBIN 10.9 g/dL (11.0-16.0); MEAN CELL VOLUME 81.1 fL (81.0-99.0); MEAN CORPUSCULAR HEMOGLOBIN 26.6 pg (27.0-31.0); MEAN CORPUSCULAR HGB CONC 32.8 g/dL (33.0-37.0); RBC 4.12 Mil/uL (3.80-5.20); RED CELL DISTRIBUTION WIDTH 16.3 % (11.5-14.5); WHITE BLOOD COUNT 6.6 K/uL (4.8-10.8)
[2018-03-14] MEDS: Benzocaine/Menthol (Cepacol) Lozenge MT PRN (10:42)
--- NOTE | 2018-03-14 15:00 | CP.PCM.PN ---
Subjective - Date & Time of Evaluation Date of Evaluation: 03/14/18 Time of Evaluation: 15:00 Objective - Vital Signs/Intake and Output Vital Signs (last 24 hours): Temp Pulse Resp BP Pulse Ox 98.3 F 61 20 113/67 96 03/14/18 08:35 03/14/18 08:35 03/14/18 08:35 03/14/18 08:35 03/14/18 08:35 Intake and Output: 03/14/18 03/14/18 06:59 18:59 Intake Total 650 Balance 650 - Medications Medications: Current Medications Acetaminophen (Tylenol 325mg Tab) 650 mg PO Q6 PRN PRN Reason: Pain, Mild (1-3) Amoxicillin (Amoxil 500 Mg Cap) 500 mg PO Q8H [facility]; Protocol Last Admin: 03/14/18 10:41 Dose: 500 mg Benzocaine/Menthol (Cepacol Sore Throat) 1 amanda MT Q2H PRN PRN Reason: Sore Throat Last Admin: 03/14/18 10:42 Dose: 1 amanda Famotidine (Pepcid) 20 mg PO BID [facility] Last Admin: 03/14/18 10:41 Dose: 20 mg Rivaroxaban (Xarelto) 15 mg PO BID [facility] Last Admin: 03/14/18 10:44 Dose: 15 mg Saliva Substitute (Mouth Kote 236 Ml) 1 ml MM Q2H PRN PRN Reason: Dry mouth Last Admin: 03/08/18 09:40 Dose: 1 ml Tramadol HCl (Ultram) 50 mg PO Q6H PRN PRN Reason: Pain, moderate (4-7) - Labs Labs: 03/14/18 08:04 03/14/18 08:04 PT 11.4 SECONDS (9.7-12.2) 03/06/18 06:51 INR 1.0 03/06/18 06:51 APTT 27 SECONDS (21-34) 03/06/18 06:51 Assessment and Plan - Assessment and Plan (Free Text) Assessment: FOLLOW UP WITH DR SHAH IN 1-2 WEEK AT HIS OFFICE ---CALL FOR APPOINTMENT FOLLOW UP WITH DR PARKINSON IN HIS OFFICE ---CALL FOR APOINTMENT FOLLOW UP WITH DR TOBIAS IN HIS OFFICE -----CALL FOR APPOINTMENT FOLLOW UP WITH KOMAL IN HIS OFFICE ----CALL FOR APPOINTMENT FOLLWO UP WITH DR ESPINO IN 1-2 WEEK ---CALL FOR APPOINTMENT CONTINUE HOME MEDICATION NEW PRESCRIPTION GIVEN BY PMD ON THE CHART ACTIVITY TOLERATED CALL DR SHAH OR GO TO THE EMERGENCY ROOM IF SYMPTOM RETURN OR WORSENING
--- NOTE | 2018-03-14 22:12 | CP.PCM.DIS ---
Provider - Provider Date of Admission: 03/03/18 11:41 Attending physician: Amandeep Helms MD Hospital Course - Lab Results Lab Results: Micro Results 03/08/18 16:11 Nose MRSA Culture - Final MRSA NOT DETECTED 03/06/18 20:05 Nose MRSA Culture (Admit) - Final MRSA NOT DETECTED Most Recent Lab Values WBC 6.6 K/uL (4.8-10.8) 03/14/18 08:04 RBC 4.12 Mil/uL (3.80-5.20) 03/14/18 08:04 Hgb 10.9 g/dL (11.0-16.0) L 03/14/18 08:04 Hct 33.4 % (34.0-47.0) L 03/14/18 08:04 MCV 81.1 fL (81.0-99.0) 03/14/18 08:04 MCH 26.6 pg (27.0-31.0) L 03/14/18 08:04 MCHC 32.8 g/dL (33.0-37.0) L 03/14/18 08:04 RDW 16.3 % (11.5-14.5) H 03/14/18 08:04 Plt Count 376 K/uL (130-400) 03/14/18 08:04 MPV 8.0 fL (7.2-11.7) 03/14/18 08:04 Neut % (Auto) 55.1 % (50.0-75.0) 03/13/18 08:33 Lymph % (Auto) 27.8 % (20.0-40.0) 03/13/18 08:33 [place] % (Auto) 10.5 % (0.0-10.0) H 03/13/18 08:33 Eos % (Auto) 5.5 % (0.0-4.0) H 03/13/18 08:33 Baso % (Auto) 1.1 % (0.0-2.0) 03/13/18 08:33 Neut # (Auto) 3.7 K/uL (1.8-7.0) 03/13/18 08:33 Lymph # (Auto) 1.9 K/uL (1.0-4.3) 03/13/18 08:33 [place] # (Auto) 0.7 K/uL (0.0-0.8) 03/13/18 08:33 Eos # (Auto) 0.4 K/uL (0.0-0.7) 03/13/18 08:33 Baso # (Auto) 0.1 K/uL (0.0-0.2) 03/13/18 08:33 Neutrophils % (Manual) 82 % (50-75) H 03/08/18 07:49 Band Neutrophils % 1 % (0-2) 03/08/18 07:49 Lymphocytes % (Manual) 7 % (20-40) L 03/08/18 07:49 Monocytes % (Manual) 10 % (0-10) 03/08/18 07:49 Platelet Estimate Normal (NORMAL) 03/08/18 07:49 Large Platelets Present 03/08/18 07:49 Polychromasia Slight 03/08/18 07:49 Hypochromasia (manual) Slight 03/08/18 07:49 Poikilocytosis (manual Slight 03/08/18 07:49 Anisocytosis (manual) Slight 03/08/18 07:49 Microcytosis (manual) Slight 03/08/18 07:49 Macrocytosis (manual) Slight 03/08/18 07:49 Tear Drop Cells Slight 03/08/18 07:49 Ovalocytes Slight 03/08/18 07:49 Retic Count 1.9 % (0.5-1.5) H 03/11/18 07:19 PT 11.4 SECONDS (9.7-12.2) 03/06/18 06:51 INR 1.0 03/06/18 06:51 APTT 27 SECONDS (21-34) 03/06/18 06:51 Sodium 139 mmol/L (132-148) 03/14/18 08:04 Potassium 4.0 mmol/L (3.6-5.2) 03/14/18 08:04 Chloride 104 mmol/L (98-107) 03/14/18 08:04 Carbon Dioxide 26 mmol/L (22-30) 03/14/18 08:04 Anion Gap 13 (10-20) 03/14/18 08:04 BUN 5 mg/dL (7-17) L 03/14/18 08:04 Creatinine 0.5 mg/dL (0.7-1.2) L 03/14/18 08:04 Est GFR ( Amer) > 60 03/14/18 08:04 Est GFR (Non-Af Amer) > 60 03/14/18 08:04 Random Glucose 94 mg/dL (65-105) 03/14/18 08:04 Calcium 8.8 mg/dl (8.6-10.4) 03/14/18 08:04 Phosphorus 4.2 mg/dL (2.5-4.5) 03/13/18 08:33 Magnesium 2.0 mg/dL (1.6-2.3) 03/13/18 08:33 Ferritin 22.1 ng/mL 03/11/18 07:19 Total Bilirubin 1.1 mg/dL (0.2-1.3) 03/14/18 08:04 Direct Bilirubin 0.5 mg/dL (0.0-0.4) H 03/14/18 08:04 AST 99 U/L (14-36) H D 03/14/18 08:04 ALT 138 U/L (9-52) H D 03/14/18 08:04 Alkaline Phosphatase 130 U/L (38-126) H 03/14/18 08:04 Total Creatine Kinase 99 U/L (30-135) 03/03/18 10:07 CK-MB (Mass) 1.35 ng/mL (0.0-3.38) 03/03/18 10:07 Troponin I < 0.0120 ng/mL (0.00-0.120) 03/03/18 10:07 NT-Pro-B Natriuret Pep 81.6 pg/mL (0-900) 03/03/18 10:07 Total Protein 6.1 g/dL (6.3-8.3) L 03/14/18 08:04 Albumin 3.4 g/dL (3.5-5.0) L 03/14/18 08:04 Globulin 2.8 gm/dL (2.2-3.9) 03/14/18 08:04 Albumin/Globulin Ratio 1.2 (1.0-2.1) 03/14/18 08:04 Vitamin B12 793 pg/mL (239-931) 03/11/18 07:19 Folate > 20.0 ng/mL 03/11/18 07:19 TSH 3rd Generation 2.73 mIU/L (0.46-4.68) 03/03/18 10:07 Urine Color Straw (YELLOW) 03/03/18 11:10 Urine Clarity Clear (Clear) 03/03/18 11:10 Urine pH 7.0 (5.0-8.0) 03/03/18 11:10 Ur Specific [place] 1.005 (1.003-1.030) 03/03/18 11:10 Urine Protein Negative mg/dL (NEGATIVE) 03/03/18 11:10 Urine Glucose (UA) Normal mg/dL (Normal) 03/03/18 11:10 Urine Ketones Negative mg/dL (NEGATIVE) 03/03/18 11:10 Urine Blood Negative (NEGATIVE) 03/03/18 11:10 Urine Nitrate Negative (NEGATIVE) 03/03/18 11:10 Urine Bilirubin Negative (NEGATIVE) 03/03/18 11:10 Urine Urobilinogen Normal mg/dL (0.2-1.0) 03/03/18 11:10 Ur Leukocyte Esterase Trace [place]/uL (Negative) 03/03/18 11:10 Urine WBC (Auto) 1 /hpf (0-5) 03/03/18 11:10 Urine HCG, Qual Negative (NEGATIVE) 03/06/18 00:42 Stool Occult Blood Positive (NEGATIVE) H 03/03/18 12:03 Urine Opiates Screen Negative (NEGATIVE) 03/03/18 11:10 Urine Methadone Screen Negative (NEGATIVE) 03/03/18 11:10 Ur Barbiturates Screen Negative (NEGATIVE) 03/03/18 11:10 Ur Phencyclidine Scrn Negative (NEGATIVE) 03/03/18 11:10 Ur Amphetamines Screen Negative (NEGATIVE) 03/03/18 11:10 U Benzodiazepines Scrn Negative (NEGATIVE) 03/03/18 11:10 U Oth Cocaine Metabols Negative (NEGATIVE) 03/03/18 11:10 U Cannabinoids Screen Negative (NEGATIVE) 03/03/18 11:10 Blood Type O POSITIVE 03/06/18 06:51 Antibody Screen Negative 03/06/18 06:51 Discharge Exam - Head Exam Head Exam: ATRAUMATIC Discharge Plan - Discharge Medications Prescriptions: Amoxicillin [Amoxil 500 mg Cap] 875 mg PO BID 3 Days cap Guaifenesin [Mucinex] 600 mg PO BID #20 ter traMADol [Ultram] 50 mg PO Q6H PRN #30 tab PRN Reason: Pain, Moderate (4-7) Rivaroxaban [Xarelto] 15 mg PO BID 30 Days tab - Follow Up Plan Condition: STABLE Disposition: HOME/ ROUTINE Instructions: Gastrointestinal Bleeding, Anemia of Chronic Disease (DC) Additional Instructions: FOLLOW UP WITH DR HELMS IN 1-2 WEEK AT HIS OFFICE ---CALL FOR APPOINTMENT FOLLOW UP WITH DR DOCKERY IN HIS OFFICE ---CALL FOR APOINTMENT FOLLOW UP WITH DR TOBIAS IN HIS OFFICE -----CALL FOR APPOINTMENT FOLLOW UP WITH KOMAL IN HIS OFFICE ----CALL FOR APPOINTMENT FOLLWO UP WITH DR ESPINO IN 1-2 WEEK ---CALL FOR APPOINTMENT CONTINUE HOME MEDICATION NEW PRESCRIPTION GIVEN BY PMD ON THE CHART ACTIVITY TOLERATED CALL DR HELMS OR GO TO THE EMERGENCY ROOM IF SYMPTOM RETURN OR WORSENING Referrals: Mark Anthony Espino MD [Staff Provider] - Hayder Dockery MD [Staff Provider] - Amandeep Helms MD [Staff Provider] - Franki Tobias Jr., MD [Staff Provider] - Jonathan Ayers MD [Staff Provider] -
--- NOTE | 2018-03-14 23:15 | CP.PCM.PN ---
Subjective - Date & Time of Evaluation Date of Evaluation: 03/14/18 Time of Evaluation: 16:00 - Subjective Subjective: Pulmonary Follow up, Covering Dr Handy The patient was Seen/interviewed and examined by me at the bedside, Medical records reviewed and Management issues were discussed and formulated with the house staff. Events reviewed Patient afebrile and in no acute distress. Patient is ambulating with PTs help and was OOB in chair in the morning. Denies SOB, cough, chest pain. Currently on Lovenox, denies bleeding or bruising. States she is feeling well overall with pain at incision site. Objective - Vital Signs/Intake and Output Vital Signs (last 24 hours): Temp Pulse Resp BP Pulse Ox 98.3 F 61 20 113/67 96 03/14/18 08:35 03/14/18 08:35 03/14/18 08:35 03/14/18 08:35 03/14/18 08:35 - Medications Medications: Current Medications Acetaminophen (Tylenol 325mg Tab) 650 mg PO Q6 PRN PRN Reason: Pain, Mild (1-3) Amoxicillin (Amoxil 500 Mg Cap) 500 mg PO Q8H [facility]; Protocol Last Admin: 03/14/18 10:41 Dose: 500 mg Benzocaine/Menthol (Cepacol Sore Throat) 1 amanda MT Q2H PRN PRN Reason: Sore Throat Last Admin: 03/14/18 10:42 Dose: 1 amanda Famotidine (Pepcid) 20 mg PO BID [facility] Last Admin: 03/14/18 10:41 Dose: 20 mg Rivaroxaban (Xarelto) 15 mg PO BID [facility] Last Admin: 03/14/18 10:44 Dose: 15 mg Saliva Substitute (Mouth Kote 236 Ml) 1 ml MM Q2H PRN PRN Reason: Dry mouth Last Admin: 03/08/18 09:40 Dose: 1 ml Tramadol HCl (Ultram) 50 mg PO Q6H PRN PRN Reason: Pain, moderate (4-7) - Labs Labs: 03/14/18 08:04 03/14/18 08:04 PT 11.4 SECONDS (9.7-12.2) 03/06/18 06:51 INR 1.0 03/06/18 06:51 APTT 27 SECONDS (21-34) 03/06/18 06:51 Assessment and Plan (1) Pulmonary embolism Status: Acute
--- NOTE | 2018-03-15 22:08 | CP.PCM.PN ---
Subjective - Date & Time of Evaluation Date of Evaluation: 03/14/18 Time of Evaluation: 16:00 - Subjective Subjective: No complaints. Objective - Vital Signs/Intake and Output Vital Signs (last 24 hours): Temp Pulse Resp BP Pulse Ox 98.3 F 61 20 113/67 96 03/14/18 08:35 03/14/18 08:35 03/14/18 08:35 03/14/18 08:35 03/14/18 08:35 - Labs Labs: 03/14/18 08:04 03/14/18 08:04 PT 11.4 SECONDS (9.7-12.2) 03/06/18 06:51 INR 1.0 03/06/18 06:51 APTT 27 SECONDS (21-34) 03/06/18 06:51 - Head Exam Head Exam: ATRAUMATIC - Eye Exam Eye Exam: Normal appearance - ENT Exam ENT Exam: Mucous Membranes Dry - Respiratory Exam Respiratory Exam: NORMAL BREATHING PATTERN - Cardiovascular Exam Cardiovascular Exam: +S1, +S2 - GI/Abdominal Exam GI & Abdominal Exam: Normal Bowel Sounds Assessment and Plan (1) GIST, 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
--- NOTE | 2018-03-16 10:22 | DS ---
Louie is for discharge. ADMISSION DIAGNOSIS: Gastrointestinal bleed. DISCHARGE DIAGNOSES: Gastric tumor, bleeding, status post partial gastrectomy, anemia of gastrointestinal bleed, dehydration. HOSPITAL COURSE: This is a 58-year-old female with no significant past medical history. Admitted with pallor, low hemoglobin, found to have GI bleed. Underwent EGD, found to have gastric tumor, underwent surgical resection. Postoperatively, she did well. She has an episode of pulmonary embolism. She was coughing. The patient was given antibiotics and anticoagulant. She is for discharge. CONDITION UPON DISCHARGE: Stable. PHYSICAL EXAMINATION: VITAL SIGNS: Blood pressure 113/67, pulse 61, respiratory rate 20, temperature 98.3. LUNGS: Clear. CARDIOVASCULAR SYSTEM: S1 and S2, regular. ABDOMEN: Soft. PLAN: Discharge the patient. Amandeep Helms MD
--- NOTE | 2018-03-17 07:08 | PN ---
DATE: 03/13/2018 SUBJECTIVE: Aviva Palma is feeling better. She is afebrile. She is not bleeding. The patient will be started on Xarelto. No fever, no chills. PHYSICAL EXAMINATION: VITAL SIGNS: Blood pressure is 130/70, pulse 70, respiratory rate 16, and temperature 99. LUNGS: Clear. CARDIOVASCULAR SYSTEM: Regular. ABDOMEN: Soft. ASSESSMENT: 1. Postop atelectasis. 2. Gastrointestinal stromal tumor of the stomach. 3. Anemia. 4. Dehydration. PLAN: Switch to oral medication. Monitor the patient. Amandeep Helms MD
== END 2018-03-14 17:30 | disposition home or self-care (01) | DRG 981 ==
LOC: C.ER 09:25 → C.9E 11:41 → C.3T 17:13 → C.9I 03-06 17:10 → C.3T 03-08 16:22 → C.6T 03-11 00:25
PROVIDERS: ADMIT Internal Medicine; ATTEND Internal Medicine
PROC: 0DB68ZX Excision of Stomach, Via Natural or Artificial Opening Endoscopic, Diagnostic (ICD-10-PCS; 2018-03-04)
PROC: 0D160ZA Bypass Stomach to Jejunum, Open Approach (ICD-10-PCS; 2018-03-06)
PROC: 0DB60ZZ Excision of Stomach, Open Approach (ICD-10-PCS; principal; 2018-03-06 11:30)
DX: C49.A2 Gastrointestinal stromal tumor of stomach (principal); I26.99 Other pulmonary embolism without acute cor pulmonale; K25.4 Chronic or unspecified gastric ulcer with hemorrhage; J18.9 Pneumonia, unspecified organism; J90 Pleural effusion, not elsewhere classified; J98.11 Atelectasis; D50.0 Iron deficiency anemia secondary to blood loss (chronic); E78.5 Hyperlipidemia, unspecified; E86.0 Dehydration; K59.00 Constipation, unspecified; Z79.02 Long term (current) use of antithrombotics/antiplatelets; E78.00 Pure hypercholesterolemia, unspecified